=== PATIENT | female | born 1935 | race Caucasian/White ===

== ENCOUNTER 2017-12-15 20:43 | Inpatient (IN) ==
[2017-12-15] MEDS ORDERED: *HR* FentaNYL (PF) 100 MCG/2 ML VIAL IVP ONE (20:59)
--- NOTE | 2017-12-15 21:00 | Emergency Department Note ---
Disposition Clinical Impression: Hip fracture Qualifiers: Encounter type: initial encounter Fracture type: closed Laterality: right Qualified Code(s): S72.001A - Fracture of unspecified part of neck of right femur, initial encounter for closed fracture Disposition: Admitted As Inpatient Condition: Good General Adult HPI - General Stated complaint: fall poss broken right hip Source: patient, EMS Mode of arrival: EMS Limitations: no limitations Nursing Notes Reviewed: Yes Vital Signs Reviewed: Yes - History of Present Illness HPI Narrative: Patient here for evaluation after fall. Patient states she was getting up on a chair when she fell backwards and hit her head on the table. Patient landed on her right hip. Patient complaining of right hip pain since then. Patient also complains of pain in her right foot. The patient states that she has not had any other injuries. Patient takes aspirin daily but no other blood thinners. Patient does not have any and there injury is noted at this time. Patient did not lose consciousness. - Related Data Home Medications Medication Instructions Recorded Confirmed Amlodipine Besylate 10 mg PO DAILY 12/15/17 12/15/17 Aspirin [Lo-Dose Aspirin EC] 81 mg PO DAILY 12/15/17 12/15/17 Ergocalciferol (VITAMIN D2) 50,000 unit PO QWEEK 12/15/17 12/15/17 [Vitamin D2] Escitalopram [Lexapro] 10 mg PO DAILY 12/15/17 12/15/17 Esomeprazole Magnesium [Nexium] 40 mg PO DAILY 12/15/17 12/15/17 Fenofibrate Nanocrystallized 160 mg PO DAILY 12/15/17 12/15/17 [Triglide] Metoprolol Succinate [Toprol Xl] 50 mg PO BID 12/15/17 12/15/17 Valsartan 160 mg PO BID 12/15/17 12/15/17 Allergies Allergy/AdvReac Type Severity Reaction Status Date / Time acetaminophen [From Percocet] Allergy Hallucinati Verified 12/15/17 21:04 ng Oxycodone [From Percocet] Allergy Hallucinati Verified 12/15/17 21:04 ng Review of Systems: CONSTITUTIONAL: No weight loss, fever, chills, weakness or fatigue. HEENT: Eyes: No visual changes. Ears, Nose, Throat: No hearing loss, difficulty talking or unable to swallow. SKIN: No rash or itching. CARDIOVASCULAR: No chest pain, chest pressure or chest discomfort. No palpitations or edema. RESPIRATORY: No shortness of breath, cough or sputum. GASTROINTESTINAL: No anorexia, nausea, vomiting or diarrhea. No abdominal pain or blood. GENITOURINARY: No burning on urination or hematuria. NEUROLOGICAL: No headache, dizziness, syncope, paralysis, ataxia, numbness or tingling in the extremities. No change in bowel or bladder control. MUSCULOSKELETAL: Right hip pain Physical Exam General: Well appearing, nontoxic, no acute distress Head: Normocephalic Atraumatic Eyes: PERRL, EOMI ENT: Airway patent, no stridor Neck: supple, no meningismus Chest: Lungs clear to auscultation bilateral; no tenderness Cardiac: Regular rate and rhythm, no murmurs, rubs or gallops Abdomen: soft, nontender, nondistended; no guarding, rebound, or tenderness to percussion Musculoskeletal: Tenderness to the right hip as well as the right ankle. Concern for external rotation of the hip. Sensation intact throughout the lower leg. Distal pulses +2 and present in the lower extremities. No cervical thoracic or lumbar spine tenderness Skin: No rash, normal skin tone Neuro: Alert and Oriented to person, place, and time; No focal deficit, CN 2-12 symmetric and intact Course - Consultations Consultation #1: Intertrochanteric fracture. Dr. Flynn. Admission to the hospitalist. Consult entered. Consultation #2: Discussed with hospitalist patient accepted for admission. Vital Signs Temperature 98.1 F 12/15/17 20:49 Pulse Rate 51 12/15/17 20:49 Respiratory Rate 16 12/15/17 20:49 Blood Pressure 172/90 12/15/17 20:49 O2 Sat by Pulse Oximetry 94 12/15/17 20:49 Temperature 98.1 F 12/15/17 20:49 Pulse Rate 67 12/15/17 23:19 Respiratory Rate 18 12/15/17 23:19 Blood Pressure 134/123 12/15/17 23:19 O2 Sat by Pulse Oximetry 99 12/15/17 23:19 Oxygen Delivery Oxygen Delivery Room Air Medical Decision Making - Medical Records Medical records reviewed: Yes I reviewed the patient's medical records. - Lab Data Lab results reviewed: Yes I reviewed the patient's lab results. Result diagrams: 12/15/17 22:12/15/17 22:05 Lab Results 12/15/17 12/15/17 12/15/17 Range/Units 22:05 22:05 22:05 WBC 14.3 H (4.3-11.1) K/mcL RBC 4.08 (3.82-4.97) M/mcL Hgb 12.0 (11.5-15.4) g/dL Hct 35.0 L (35.3-44.9) % MCV 85.8 (83.0-100.0) fL MCH 29.4 (28.0-33.3) pg MCHC 34.3 (31.6-35.5) g/dL RDW 12.7 (11.5-14.5) % Plt Count 193 (140-400) K/mcL MPV 9.0 L (9.4-12.4) fL Immature Gran % 0.5 (0-4) % Seg Neutrophils % 51.9 % Lymphocytes % 38.3 % Monocytes % 5.4 % Eosinophils % 3.4 % Basophils % 0.5 % Neutrophils # 7.4 (1.6-8.9) K/mcL Lymphocytes # 5.5 H (0.6-4.6) K/mcL Monocytes # 0.8 (0.0-1.3) K/mcL Eosinophils # 0.5 (0.0-0.6) K/mcL Basophils # 0.1 (0.0-0.2) K/mcL PT 11.0 (9.4-12.1) Seconds INR 1.0 Sodium 140 (136-145) mEq/L Potassium 3.8 (3.5-5.1) mEq/L Chloride 105 (98-107) mEq/L Carbon Dioxide 26 (23-29) mEq/L BUN 40 H (8-23) mg/dL Creatinine 1.25 H (0.60-1.20) mg/dL Est GFR ( Amer) 50 L (> 60) Est GFR (Non-Af Amer) 41 L (> 60) BUN/Creatinine Ratio 32 H (6-26) Glucose 127 H (70-105) mg/dL Calculated Osmolality 301 H (280-300) Calcium 9.5 (8.6-10.3) mg/dL Urine Color (Yellow) Urine Clarity (Clear) Urine pH (5.0-8.0) pH Units Ur Specific [place] (1.010-1.025) Urine Protein (Neg-Trace) mg/dL Urine Glucose (UA) (Normal) mg/dL Urine Ketones (Negative) mg/dL Urine Blood (Negative) Urine Nitrite (Negative) Urine Bilirubin (Negative) Urine Urobilinogen (Normal) mg/dL Ur Leukocyte Esterase (Negative) Ur Culture Indicated? (NO) 12/15/17 Range/Units 22:34 WBC (4.3-11.1) K/mcL RBC (3.82-4.97) M/mcL Hgb (11.5-15.4) g/dL Hct (35.3-44.9) % MCV (83.0-100.0) fL MCH (28.0-33.3) pg MCHC (31.6-35.5) g/dL RDW (11.5-14.5) % Plt Count (140-400) K/mcL MPV (9.4-12.4) fL Immature Gran % (0-4) % Seg Neutrophils % % Lymphocytes % % Monocytes % % Eosinophils % % Basophils % % Neutrophils # (1.6-8.9) K/mcL Lymphocytes # (0.6-4.6) K/mcL Monocytes # (0.0-1.3) K/mcL Eosinophils # (0.0-0.6) K/mcL Basophils # (0.0-0.2) K/mcL PT (9.4-12.1) Seconds INR Sodium (136-145) mEq/L Potassium (3.5-5.1) mEq/L Chloride (98-107) mEq/L Carbon Dioxide (23-29) mEq/L BUN (8-23) mg/dL Creatinine (0.60-1.20) mg/dL Est GFR ( Amer) (> 60) Est GFR (Non-Af Amer) (> 60) BUN/Creatinine Ratio (6-26) Glucose (70-105) mg/dL Calculated Osmolality (280-300) Calcium (8.6-10.3) mg/dL Urine Color Yellow (Yellow) Urine Clarity Clear (Clear) Urine pH 6.5 (5.0-8.0) pH Units Ur Specific [place] 1.020 (1.010-1.025) Urine Protein Negative (Neg-Trace) mg/dL Urine Glucose (UA) Normal (Normal) mg/dL Urine Ketones Negative (Negative) mg/dL Urine Blood Negative (Negative) Urine Nitrite Negative (Negative) Urine Bilirubin Negative (Negative) Urine Urobilinogen Normal (Normal) mg/dL Ur Leukocyte Esterase Negative (Negative) Ur Culture Indicated? NO (NO) - Radiology Data Radiology results reviewed: Yes I reviewed the patient's radiology results. - EKG Data EKG #1 EKG attestation: Yes I reviewed and interpreted this EKG. EKG results narrative: EKG shows sinus bradycardia with ventricular rate of 52. [place] all 214. QRS 101. QTC 454. Patient has no significant elevations or depressions but she does have T-wave inversions throughout the anterior leads.
[2017-12-15 22:17] LABS: Basophils # 0.1 K/mcL (0.0-0.2); Basophils % 0.5 %; Eosinophils # 0.5 K/mcL (0.0-0.6); Eosinophils % 3.4 %; Immature Granulocytes % 0.5 % (0-4); Lymphocytes # 5.5 K/mcL (0.6-4.6); Lymphocytes % 38.3 %; Mean Corpuscular HGB Conc 34.3 g/dL (31.6-35.5); Mean Corpuscular Hemoglobin 29.4 pg (28.0-33.3); Mean Corpuscular Volume 85.8 fL (83.0-100.0); Monocytes # 0.8 K/mcL (0.0-1.3); Monocytes % 5.4 %; Neutrophils # 7.4 K/mcL (1.6-8.9); Platelet Count 193 K/mcL (140-400); Red Blood Count 4.08 M/mcL (3.82-4.97); Red Cell Distribution Width 12.7 % (11.5-14.5); Segmented Neutrophils % 51.9 %
[2017-12-15 22:37] LABS: Calcium 9.5 mg/dL (8.6-10.3); Potassium 3.8 mEq/L (3.5-5.1)
--- NOTE | 2017-12-15 22:42 | Emergency Department Note ---
START Narrative - START START: I examined this patient and my medical decision-making was reviewed with the Resident Physician. I agree with the documented findings, disposition and treatment plan as described except to the extent set forth below. 82-year-old female presents emergency room for a fall. Patient fell at home. Injured injuring her right hip. Patient sustained a right hip fracture. Consult with Dr. Flynn With orthopedics. We will admit to the hospitalist. We also did a CT of the head and neck as she did hit her head during the fall. Those were negative. We will do a preop workup in the ER.
[2017-12-15 22:43] LABS: Bilirubin,Urine Negative (Negative); Blood,Urine Negative (Negative); Clarity,Urine Clear (Clear); Color,Urine Yellow (Yellow); Glucose,Urine (UA) Normal (Normal); Ketones,Urine Negative (Negative); Leukocyte Esterase,Urine Negative (Negative); Nitrite,Urine Negative (Negative); PH,Urine 6.5 pH Units (5.0-8.0); Protein,Urine Negative (Neg-Trace); Urobilinogen,Urine Normal (Normal)
[2017-12-15] MEDS ORDERED: Naloxone 0.4 MG/ML INJ IVP PRN (23:33)
[2017-12-15] MEDS ORDERED: Ondansetron 4 MG/2 ML VIAL IVP PRN (23:33)
[2017-12-15] MEDS ORDERED: diazePAM 2 MG TABLET PO ONE (23:40)
[2017-12-15] MEDS ORDERED: *HR* HYDROcodone/Acet 10/325 mg TABLET PO ONE (23:40)
[2017-12-15] MEDS: 0.9 % Sodium Chloride 1,000 ML IVC SCH (23:51)
--- NOTE | 2017-12-16 01:12 | Internal Med History&Physical ---
Date of Encounter: 12/16/17 Time of Encounter: 12:45 Internal Medicine - H&P: HPI Chief complaint: s/p fall Admitted From: Home Plans for Post Hospital Care: Transfer Assisted Facility History of present illness: Ms. Aguilar is a 82 year old female with PMH of HTN, IBS, malignancy, GERD, HLD, CKD who presented to the ER s/p mechanical fall sustaining an acute right hip fracture. ER consulted orthopedic surgery. Pt reports of having extensive hallucinations to narcotic therapy. she received fentanyl, valium, and norco in the ER, which provided her with adequate relief. She is currently resting in bed with family present at bedside, and denies any pain at rest and states she has severe right lower extremity pain with minimal movement. Pt denies any headache, dizziness, lightheadedness, chest pain, sob, n/v, fever, or chills at this time. Past Med Surg Social Fam HX - Past Medical History Medical history: cancer, GERD, hypertension, renal disease Psychiatric history: no psych history - Past Surgical History Surgical History: cholecystectomy, hysterectomy - Social History Smoking Status: Never smoker Alcohol use: none Drug use: none - Family History Mother Living Status: Age at : 68 Cause of : lung ca Hx Family Cancer: Yes (lung ca) Hx Family Endocrine Disorder: Yes (dm) Father Living Status: Age at : 54 Cause of : mi Hx Family Cardiac Disorders: Yes Internal Medicine - H&P: Meds Amlodipine Besylate 10 mg PO DAILY 12/15/17 [History] Aspirin [Lo-Dose Aspirin EC] 81 mg PO DAILY 12/15/17 [History] Ergocalciferol (VITAMIN D2) [Vitamin D2] 50,000 unit PO QWEEK 12/15/17 [History] Escitalopram [Lexapro] 10 mg PO DAILY 12/15/17 [History] Esomeprazole Magnesium [Nexium] 40 mg PO DAILY 12/15/17 [History] Fenofibrate Nanocrystallized [Triglide] 160 mg PO DAILY 12/15/17 [History] Metoprolol Succinate [Toprol Xl] 50 mg PO BID 12/15/17 [History] Valsartan 160 mg PO BID 12/15/17 [History] Loperamide [Imodium] 2 mg PO DAILY 12/16/17 [History] 3 Allergy/AdvReac Type Severity Reaction Status Date / Time acetaminophen [From Percocet] Allergy Hallucinati Verified 12/15/17 21:04 ng Oxycodone [From Percocet] Allergy Hallucinati Verified 12/15/17 21:04 ng All Systems PM: A 10-system review of systems was performed and is negative for pertinent findings except as documented above in the HPI. - Constitutional Constitutional: as per HPI - Constitutional Vitals: Temp Pulse Resp BP Pulse Ox 97.4 F L 58 14 127/66 94 12/16/17 00:50 12/16/17 00:50 12/16/17 00:50 12/16/17 00:50 12/16/17 00:50 General appearance: Present: cooperative, A&O X 3, pleasant, no acute distress, answers questions appropriately - Head Head exam: Present: atraumatic, normocephalic - Eye Eye exam: Present: conjuntiva pink, sclera anicteric - Respiratory Respiratory exam: Present: CTAB. Absent: respiratory distress, wheezes - Cardiovascular Cardiovascular exam: Present: RRR, +S1, +S2. Absent: diastolic murmur, gallop, rubs, systolic murmur - GI/Abdominal GI/Abdominal exam: Present: normal bowel sounds, soft, no peritoneal signs. Absent: distended, tenderness - Extremities Exam Extremities exam: Present: tenderness (right hip tenderness), warm, radial pulses palpable and symmetrical (trace right pedal edema ). Absent: calf tenderness - Neurological Exam Neurological exam: Present: oriented X3 - Psychiatric Psychiatric exam: Present: normal affect, normal mood Internal Med - H&P Results - Labs CBC & Chem 7: 12/15/17 22:05 12/15/17 22:05 - Assessment and plan (1) Hip fracture Current Visit: Yes Status: Acute Assessment and plan: Pelvis XRay reported acute right hip fracture Orthopedic surgery consulted by ER physician supportive care NPO after midnight Qualifiers: Encounter type: initial encounter Fracture type: closed Laterality: right Qualified Code(s): S72.001A - Fracture of unspecified part of neck of right femur, initial encounter for closed fracture (2) [id number]-he-[id number] kidney injury Current Visit: Yes Status: Acute Assessment and plan: mild elevation in Creatinine noted compared to previous labs hold ARB at this time continue IV fluids hold NSAIDS avoid any nephrotoxic agents closely monitor renal function Qualifiers: Acute renal failure type: unspecified Chronic kidney disease stage: unspecified stage Qualified Code(s): N17.9 - Acute kidney failure, unspecified ; N18.9 - Chronic kidney disease, unspecified (3) HTN (hypertension) Current Visit: Yes Status: Chronic Assessment and plan: BP within acceptable range continue home meds hold home dose of Valsartan given DIDIER will closely monitor BP Qualifiers: Hypertension type: essential hypertension Qualified Code(s): I10 - Essential (primary) hypertension (4) HLD (hyperlipidemia) Current Visit: Yes Status: Chronic Assessment and plan: continue home meds Qualifiers: Hyperlipidemia type: unspecified Qualified Code(s): E78.5 - Hyperlipidemia , unspecified (5) DVT prophylaxis Current Visit: Yes Status: Acute Assessment and plan: start Heparin SQ after orthopedic evaluation in am - Time Spent With Patient Total time spent is greater than 50% in coordination of care (as documented) at patient's floor/unit and/or counseling patient:
[2017-12-16 01:45] LABS: Basophils # 0.1 K/mcL (0.0-0.2); Basophils % 0.5 %; Eosinophils # 0.2 K/mcL (0.0-0.6); Eosinophils % 1.1 %; Hematocrit 34.1 % (35.3-44.9); Hemoglobin 11.2 g/dL (11.5-15.4); Immature Granulocytes % 0.4 % (0-4); Lymphocytes # 4.1 K/mcL (0.6-4.6); Lymphocytes % 28.6 %; Mean Corpuscular HGB Conc 32.8 g/dL (31.6-35.5); Mean Corpuscular Hemoglobin 28.3 pg (28.0-33.3); Mean Corpuscular Volume 86.1 fL (83.0-100.0); Mean Platelet Volume 9.4 fL (9.4-12.4); Monocytes # 0.9 K/mcL (0.0-1.3); Monocytes % 6.1 %; Platelet Count 198 K/mcL (140-400); Red Blood Count 3.96 M/mcL (3.82-4.97); Red Cell Distribution Width 12.7 % (11.5-14.5); Segmented Neutrophils % 63.3 %
[2017-12-16 02:03] LABS: Magnesium 1.9 mg/dL (1.6-2.6); Phosphorous 2.7 mg/dL (2.7-4.5); Potassium 3.8 mEq/L (3.5-5.1)
--- NOTE | 2017-12-16 06:54 | Orthopedic Consult Note ---
Date of Encounter: 12/16/17 Time of Encounter: 06:52 History of Present Illness HPI: Ms. Aguilar is a 82 year old female Status post fall yesterday after climbing on a chair to change screen. Patient fell and injured her right hip. Patient denies any history of head trauma. Patient does have a significant history with reaction to conscious sedation following kyphoplasty and EGD in the past. Physical exam Patient alert and oriented 3 Right lower extremity Shortened externally rotated Neurovascular intact Decreased range of motion secondary to pain X-rays show displaced subtrochanteric intertrochanteric right femur fracture. Recommendation patient to be evaluated by anesthesia morning plan for open reduction intramedullary nail fixation. We reviewed the risks and benefits as well as recovery. All questions were answered. The patient agreed to this treatment plan and appeared to understand the plan is reviewed. Past Med Surg Social Fam HX - Past Medical History Medical history: cancer, GERD, hypertension, renal disease Psychiatric history: no psych history - Past Surgical History Surgical History: cholecystectomy, hysterectomy - Social History Smoking Status: Never smoker Alcohol use: none Drug use: none - Family History Mother Living Status: Age at : 68 Cause of : lung ca Hx Family Cancer: Yes (lung ca) Hx Family Endocrine Disorder: Yes (dm) Father Living Status: Age at : 54 Cause of : mi Hx Family Cardiac Disorders: Yes Medications and Allergies Amlodipine Besylate 10 mg PO DAILY 12/15/17 [History] Aspirin [Lo-Dose Aspirin EC] 81 mg PO DAILY 12/15/17 [History] Ergocalciferol (VITAMIN D2) [Vitamin D2] 50,000 unit PO QWEEK 12/15/17 [History] Escitalopram [Lexapro] 10 mg PO DAILY 12/15/17 [History] Esomeprazole Magnesium [Nexium] 40 mg PO DAILY 12/15/17 [History] Fenofibrate Nanocrystallized [Triglide] 160 mg PO DAILY 12/15/17 [History] Metoprolol Succinate [Toprol Xl] 50 mg PO BID 12/15/17 [History] Valsartan 160 mg PO BID 12/15/17 [History] Loperamide [Imodium] 2 mg PO DAILY 12/16/17 [History] 3 Allergy/AdvReac Type Severity Reaction Status Date / Time acetaminophen [From Percocet] Allergy Hallucinati Verified 12/15/17 21:04 ng Oxycodone [From Percocet] Allergy Hallucinati Verified 12/15/17 21:04 ng All Systems Reviewed: The remainder of the systems were reviewed and are negative Physical Exam - Constitutional Vitals: Temp Pulse Resp BP Pulse Ox 98.1 F 55 20 110/64 98 12/16/17 03:20 12/16/17 03:20 12/16/17 03:20 12/16/17 03:20 12/16/17 03:20 Results - Labs Result Diagrams: 12/16/17 01:22 12/16/17 01:22 Labs: Abnormal lab results WBC 14.2 K/mcL (4.3-11.1) H 12/16/17 01:22 Hgb 11.2 g/dL (11.5-15.4) L 12/16/17 01:22 Hct 34.1 % (35.3-44.9) L 12/16/17 01:22 Neutrophils # 9.0 K/mcL (1.6-8.9) H 12/16/17 01:22 Carbon Dioxide 22 mEq/L (23-29) L 12/16/17 01:22 BUN 40 mg/dL (8-23) H 12/16/17 01:22 Est GFR ( Amer) 56 (> 60) L 12/16/17 01:22 Est GFR (Non-Af Amer) 46 (> 60) L 12/16/17 01:22 BUN/Creatinine Ratio 36 (6-26) H 12/16/17 01:22 Glucose 136 mg/dL (70-105) H 12/16/17 01:22 Calculated Osmolality 302 (280-300) H 12/16/17 01:22 H & H 12/16/17 Range/Units 01:22 Hgb 11.2 L (11.5-15.4) g/dL Hct 34.1 L (35.3-44.9) % All other labs normal. Consult Discharge Plan - Plan
[2017-12-16] MEDS ORDERED: traMADol 50 MG TABLET PO ONE (08:30)
[2017-12-16] MEDS ORDERED: Valsartan 160 MG TABLET PO SCH (09:00)
[2017-12-16] MEDS ORDERED: Fenofibrate 54 MG TABLET PO SCH (09:00)
[2017-12-16] MEDS ORDERED: Metoprolol XL (24 HR) Succ 50 MG TAB.ER.24H PO SCH (09:00)
[2017-12-16] MEDS ORDERED: Loperamide 1 MG/5 ML UDC PO SCH (09:00)
[2017-12-16] MEDS ORDERED: amLODIPine 5 MG TABLET PO SCH (09:00)
[2017-12-16] MEDS ORDERED: Aspirin Enteric Coated 81 MG Tablet PO SCH (09:00)
--- NOTE | 2017-12-16 11:28 | Internal Med Progress Note ---
Date of Encounter: 12/16/17 Time of Encounter: 11:23 - Assessment and plan (1) Hip fracture Current Visit: Yes Status: Acute Assessment and plan: 82-year-old female had accidental fall which resulted in left hip fracture. Orthopedics planned surgery today. - Pain control, DVT prophylaxis. - Host operative rehabilitation discussed with patient. Qualifiers: Encounter type: initial encounter Fracture type: closed Laterality: right Qualified Code(s): S72.001A - Fracture of unspecified part of neck of right femur, initial encounter for closed fracture (2) HTN (hypertension) Current Visit: Yes Status: Chronic Assessment and plan: BP well controlled, resume Valsartan due to resolved DIDIER. Continue other home medications. Qualifiers: Hypertension type: essential hypertension Qualified Code(s): I10 - Essential (primary) hypertension (3) HLD (hyperlipidemia) Current Visit: Yes Status: Chronic Assessment and plan: continue home meds Qualifiers: Hyperlipidemia type: unspecified Qualified Code(s): E78.5 - Hyperlipidemia , unspecified (4) [id number] kidney injury Current Visit: Yes Status: Acute Assessment and plan: DIDIER resolved, resume valsartan. Qualifiers: Acute renal failure type: unspecified Chronic kidney disease stage: unspecified stage Qualified Code(s): N17.9 - Acute kidney failure, unspecified ; N18.9 - Chronic kidney disease, unspecified (5) DVT prophylaxis Current Visit: Yes Status: Acute Assessment and plan: start Heparin SQ. - Time Spent With Patient Total time spent is greater than 50% in coordination of care (as documented) at patient's floor/unit and/or counseling patient: - Subjective Interval history: Patient seen and examined in the room was family. She has no complaints at this time, awaiting the upcoming surgery. She denies fever, chills, or night sweats. She has no chest pain, shortness of breath, or palpitation. - Constitutional Vitals: Temp Pulse Resp BP Pulse Ox 98.1 F 58 18 112/68 99 12/16/17 06:44 12/16/17 06:44 12/16/17 06:44 12/16/17 06:44 12/16/17 07:52 General appearance: Present: cooperative, A&O X 3, pleasant, no acute distress, answers questions appropriately Exam: PHYSICAL EXAMINATION: GENERAL APPEARANCE: The patient is alert, oriented and in no acute distress. HEENT: Head is normocephalic. The sinuses are nontender. Pupils are equal and reactive. The nares are patent. Oropharynx clear without lesions. NECK: Supple without lymphadenopathy. HEART: Regular rate and rhythm. LUNGS: No crackles or wheezes are heard. ABDOMEN: Soft, nontender, nondistended with good bowel sounds heard. Inguinal area is normal. EXTREMITIES: intact neurovascular function of right leg.. NEUROLOGICAL: Gross nonfocal. SKIN: Warm and dry without any rash. Internal Medicine: Result - Labs CBC & Chem 7: 12/16/17 01:22 12/16/17 01:22 Labs: Short CBC 12/16/17 Range/Units 01:22 WBC 14.2 H (4.3-11.1) K/mcL Hgb 11.2 L (11.5-15.4) g/dL Hct 34.1 L (35.3-44.9) % Plt Count 198 (140-400) K/mcL Neutrophils # 9.0 H (1.6-8.9) K/mcL BMP 12/16/17 01:22 Sodium 140 Potassium 3.8 Chloride 107 Carbon Dioxide 22 L BUN 40 H Creatinine 1.12 Glucose 136 H Calcium 9.0 - ABG Interpretation ABG results: PT/INR, D-dimer PT 11.0 Seconds (9.4-12.1) 12/15/17 22:05 Consult Discharge Plan - Plan Referrals: Ed Ramirez MD [Primary Care Provider] -
--- NOTE | 2017-12-16 11:35 | Anesthesia Evaluation PreOp ---
Date of Encounter: 12/16/17 Time of Encounter: 11:33 - Past History Planned Operation: R hip IM nail Cardiac History: HTN, Hyperlipidemia Pulmonary History: ADILENE Dx (on cpap) HUMAN PROJECTILE History: Denies Any Significant HX Other Medical History: Renal (CKD) Anesthesia History: No Prior Anesthetic Complications, Past Anesthesia (brain sx ,cholecystectomy, hysterectomy) Alcohol Use: none Drug use: none Medications and Allergies Amlodipine Besylate 10 mg PO DAILY 12/15/17 [History] Aspirin [Lo-Dose Aspirin EC] 81 mg PO DAILY 12/15/17 [History] Ergocalciferol (VITAMIN D2) [Vitamin D2] 50,000 unit PO QWEEK 12/15/17 [History] Escitalopram [Lexapro] 10 mg PO DAILY 12/15/17 [History] Esomeprazole Magnesium [Nexium] 40 mg PO DAILY 12/15/17 [History] Fenofibrate Nanocrystallized [Triglide] 160 mg PO DAILY 12/15/17 [History] Metoprolol Succinate [Toprol Xl] 50 mg PO BID 12/15/17 [History] Valsartan 160 mg PO BID 12/15/17 [History] Loperamide [Imodium] 2 mg PO DAILY 12/16/17 [History] 3 Allergy/AdvReac Type Severity Reaction Status Date / Time acetaminophen [From Percocet] Allergy Hallucinati Verified 12/15/17 21:04 ng Oxycodone [From Percocet] Allergy Hallucinati Verified 12/15/17 21:04 ng - Meds/Allergy Pre-op Review Medications Reviewed: Yes Allergies Reviewed: Yes Beta Blockers on Current Med List: Yes If Beta Blockers taken, Date/Time (Last Dose taken): 740am 12/16/17 Anesthesia Results - Labs 12/16/17 01:22 12/16/17 01:22 - Imaging EKG: report reviewed (sinus destin with first degree AV block) Anesthesia Exam Vital Signs/O2 Sat, Most Current Temp Pulse Resp BP Pulse Ox 98.1 F 58 18 112/68 99 12/16/17 06:44 12/16/17 06:44 12/16/17 06:44 12/16/17 06:44 12/16/17 07:52 Height: 1.61m Weight: 74kg NPO (# of Hours): >8 Pain Scale Used: Numeric (1 - 10) - HEENT Pupil (Motor): Pupils equal, EOMI - HUMAN PROJECTILE LOC: Oriented HUMAN PROJECTILE Motor: Normal RUE, Normal LUE, Normal RLE, Normal LLE, Normal Face HUMAN PROJECTILE Sensory: Normal: RUE, LUE, LLE, Face, Deficit: RLE (hip fracture) - Cardiac Rhythm: Regular - Pulmonary Breath Sounds: bilateral Clear Anesthesia Assess/Plan ASA Score: 3 Modified [place] Scale for Level of Consciousness: Cooperative, oriented, and tranquil Anesthetic Plan: General Monitoring Plan: Standard Monitors Recovery Plan: PACU
[2017-12-16] MEDS ORDERED: Acetaminophen IV 1,000 MG/100 ML INFUS..BTL ONE (12:06)
[2017-12-16] MEDS ORDERED: *HR* FentaNYL (PF) 100 MCG/2 ML VIAL ONE (12:13)
[2017-12-16] MEDS ORDERED: *HR* Propofol 200 MG/20 ML VIAL IVP ONE (12:13)
[2017-12-16] MEDS ORDERED: Lidocaine -MPF 2% 2 ML VIAL ONE (12:15)
[2017-12-16] MEDS ORDERED: *HR* Succinylcholine 200 MG/10 ML VIAL IVP ONE (12:15)
[2017-12-16] MEDS ORDERED: CeFAZolin Syr 2,000MG/20 ML 2,000 MG/20 ML SYRINGE IVPB ONE (12:17)
[2017-12-16] MEDS ORDERED: EPHEDrine 50 MG/ML VIAL ONE (12:53)
[2017-12-16] MEDS ORDERED: Dexamethasone 4 MG/ML VIAL ONE (13:04)
[2017-12-16] MEDS ORDERED: Ondansetron 4 MG/2 ML VIAL ONE (13:04)
[2017-12-16] MEDS ORDERED: MORPHINE SUL Oral CONC 10 MG/0.5 ML ORAL.SYG SL PRN (13:45)
--- NOTE | 2017-12-16 13:56 | Orthopedic Operative Note ---
Date of procedure: 12/16/17 Pre-op diagnosis: Displaced right comminuted subtrochanteric/intertrochanteric hip fracture. Post-op diagnosis: same Procedure: Procedure: Right hip open reduction intramedullary nail fixation Estimated blood loss: 200 cc Hardware: Metal: 10 x 130 Synthes TFN, 90 helical blade, Procedural Notes: Patient with very tight canal rotational stability was obtained by the security of the nail in the distal femur. Operative procedure: The patient was brought to the operating room and placed on the operating room table. After general anesthesia was administered the well leg was place in the well leg kahn and the operative leg was placed in the fracture leg kahn. All pressure points were padded appropriately. The operative extremity was prepped and draped in the sterile surgical fashion patient received IV antibiotic prior to skin incision. A standard direct lateral approach was made over the entry point of the greater trochanter, the incision was made through the skin and subcutaneous tissue hemostasis was obtained with Bovie cautery. Using careful sharp dissection the fascia was identified and incised, flouroscopic assistance was used to identify the entry point. The guidepin was placed at the entry point using fluroscopic assistance, it was over reamed with the proximal reamer. The nail was placed through the entry hole, across the fracture site into the distal fragment the position was confirmed with fluroscopy. Patient had significant comminution proximally. Overall reduction and alignment were acceptable. A guide pin was placed through the proximal locking guide from the lateral femur through the nail across the fracture site into the femoral head, it was over reamed with the reamer. The 90 mm helical blade was placed over the guide pin through the nail into the femoral head, locked in place with the proximal locking bolt. Distal fixation was obtained by the fit of the femoral nail within the femoral shaft. The position of hardware and fracture reduction found to be acceptable with fluroscopic assistance. The wound was irrigated. Fascia was closed with a running #2 PDS suture. The deep tissue was irrigated and closed deep with #1 PDS suture superficially with 0 PDS suture and skin was closed with skin dia and zip tie. The patient was placed in a sterile dressing The patient was extubated and transferred to the recovery room in stable condition. Anesthesia: GETA Surgeon: Westley Flynn Was there an optical assistant present: No Estimated blood loss (cc): 200 Condition: stable Disposition: PACU
[2017-12-16 14:04] LABS: Hematocrit 31.5 % (35.3-44.9); Hemoglobin 10.6 g/dL (11.5-15.4)
[2017-12-16] MEDS ORDERED: *HR* HYDROcodone/Acet 10/325 mg TABLET PO PRN ×2 (14:13→21:37)
[2017-12-16] MEDS ORDERED: 0.9 % Sodium Chloride 1,000 ML IVC SCH (14:13)
[2017-12-16] MEDS ORDERED: Naloxone 0.4 MG/ML INJ IVP PRN (14:13)
[2017-12-16] MEDS ORDERED: Ondansetron 4 MG/2 ML VIAL IVP PRN (14:13)
--- NOTE | 2017-12-16 14:17 | Anesthesia Evaluation Post Op ---
Date of Encounter: 12/16/17 Time of Encounter: 14:15 - Vital Signs Vital Signs: Vital Signs/O2 Sat, Most Current Temp Pulse Resp BP Pulse Ox 98.2 F 62 16 137/68 92 12/16/17 13:34 12/16/17 13:54 12/16/17 13:54 12/16/17 13:54 12/16/17 13:54 - Lungs Lungs: Clear Ascult./Percussion - Airway Airway: Non-obstructed - Cardiovascular Regular Rate - Mental Status Mental Status: Alert & Oriented, Answers Appropriately - Pain Pain Scale: 0 Pain Scale used: Numeric (1 - 10) - Nausea Vomiting Nausea Vomiting: Not Present - Hydration Hydration: Ice chips, Goldstein catheter - Discharge PostOp Status: Transfer Patient to floor Attestation: I have assessed this patient and find they meet discharge criteria.
--- NOTE | 2017-12-16 17:21 | Event Note ---
Date of Encounter: 12/16/17 Time of Encounter: 17:19 Patient is to get a bone stimulator for the operative hip. Bracing from [facility] is working on getting this taken care of for her. This will be provided for patient to use starting on Tuesday 12/19. It is to be applied 3 hours daily.
[2017-12-16] MEDS: *HR* Heparin 5,000 UNIT/ML VIAL SQ SCH (17:25)
[2017-12-16] MEDS: CeFAZolin Pre 2,000 MG/100 ML 2,000 MG/100 ML BAG IVPB SCH (17:25)
[2017-12-16] MEDS ORDERED: *HR* Heparin 5,000 UNIT/ML VIAL SQ SCH (18:00)
[2017-12-16] MEDS: Metoprolol XL (24 HR) Succ 50 MG TAB.ER.24H PO SCH (21:34)
[2017-12-16] MEDS: Valsartan 160 MG TABLET PO SCH (21:34)
[2017-12-16] MEDS ORDERED: traMADol 50 MG TABLET PO PRN ×2 (21:36→21:45)
[2017-12-16] MEDS ORDERED: Acetaminophen IV 1,000 MG/100 ML INFUS..BTL IVPB PRN (21:37)
[2017-12-16] MEDS: *HR* HYDROcodone/Acet 5/325 mg TABLET PO PRN (21:55)
--- NOTE | 2017-12-16 23:27 | Electrocardiograph Report ---
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
[2017-12-17] MEDS: CeFAZolin Pre 2,000 MG/100 ML 2,000 MG/100 ML BAG IVPB SCH (00:37)
[2017-12-17] MEDS: *HR* Heparin 5,000 UNIT/ML VIAL SQ SCH ×2 (05:27→18:34)
--- NOTE | 2017-12-17 09:47 | Internal Med Progress Note ---
Date of Encounter: 12/17/17 Time of Encounter: 09:30 - Assessment and plan (1) Hip fracture Current Visit: Yes Status: Acute Assessment and plan: Postop day 1 Right hip open reduction intramedullary nail fixation Pain is adequately controlled Working with physical therapy Likely discharge Tuesday Qualifiers: Encounter type: initial encounter Fracture type: closed Laterality: right Qualified Code(s): S72.001A - Fracture of unspecified part of neck of right femur, initial encounter for closed fracture (2) HTN (hypertension) Current Visit: Yes Status: Chronic Assessment and plan: BP well controlled, resume Valsartan due to resolved DIDIER. Continue other home medications. Qualifiers: Hypertension type: essential hypertension Qualified Code(s): I10 - Essential (primary) hypertension (3) HLD (hyperlipidemia) Current Visit: Yes Status: Chronic Assessment and plan: continue home meds Qualifiers: Hyperlipidemia type: unspecified Qualified Code(s): E78.5 - Hyperlipidemia , unspecified (4) Jefqu-fa-uepglac kidney injury Current Visit: Yes Status: Acute Assessment and plan: DIDIER resolved, resume valsartan. Qualifiers: Acute renal failure type: unspecified Chronic kidney disease stage: unspecified stage Qualified Code(s): N17.9 - Acute kidney failure, unspecified ; N18.9 - Chronic kidney disease, unspecified (5) DVT prophylaxis Current Visit: Yes Status: Acute Assessment and plan: start Heparin SQ. - Time Spent With Patient Total time spent is greater than 50% in coordination of care (as documented) at patient's floor/unit and/or counseling patient: 25 - 35 minutes - Subjective Interval history: Work with physical therapy today morning. Sitting in a chair. Uses a walker with partial weightbearing allowed. - Constitutional Vitals: Temp Pulse Resp BP Pulse Ox 98.3 F 57 17 116/72 94 12/17/17 07:15 12/17/17 07:15 12/17/17 07:15 12/17/17 07:15 12/17/17 07:15 General appearance: Present: cooperative, A&O X 3, pleasant, no acute distress, answers questions appropriately Exam: Physical exam Gen: Comfortable, laying in bed, in no visible distress HEENT: Normocephalic, atraumatic. No conjunctival icterus. Moist oral mucosa. Neck: Supple Lungs: Clear to auscultation, no foreign sounds Heart: Normal S1-S2, no murmurs rubs or gallops Abdomen: Normoactive bowel sounds, no guarding rigidity or tenderness Extremities: No edema clubbing or cyanosis Neuro: Alert oriented 3, no focal deficits Skin: No skin lesions Internal Medicine: Result - Labs CBC & Chem 7: 12/16/17 13:51 12/16/17 01:22 Labs: Short CBC 12/16/17 Range/Units 13:51 Hgb 10.6 L (11.5-15.4) g/dL Hct 31.5 L (35.3-44.9) % - ABG Interpretation ABG results: PT/INR, D-dimer PT 11.0 Seconds (9.4-12.1) 12/15/17 22:05 - Impressions Impressions Fluoroscopy 12/16/17 12:52 IMPRESSION: Intraprocedural fluoroscopic spot images as above. See separate procedure report for more information. D/ / Trevor Ruiz MD / Trevor Ruiz MD Interpreting Provider: Trevor Ruiz MD Hip X-Ray 12/16/17 12:52 IMPRESSION: Intraprocedural fluoroscopic spot images as above. See separate procedure report for more information. D/ / Trevor Ruiz MD / Trevor Ruiz MD Interpreting Provider: Trevor Ruiz MD - VTE Documentation of Mechanical Device: Venous foot pump, device Consult Discharge Plan - Plan Referrals: Ed Ramirez MD [Primary Care Provider] -
[2017-12-17] MEDS: *HR* HYDROcodone/Acet 5/325 mg TABLET PO PRN ×2 (09:51→18:34)
[2017-12-17] MEDS: Aspirin Enteric Coated 81 MG Tablet PO SCH (09:52)
[2017-12-17] MEDS: Metoprolol XL (24 HR) Succ 50 MG TAB.ER.24H PO SCH ×2 (09:52→21:04)
[2017-12-17] MEDS: Loperamide 1 MG/5 ML UDC PO SCH (09:52)
[2017-12-17] MEDS: amLODIPine 5 MG TABLET PO SCH (09:52)
[2017-12-17] MEDS: Valsartan 160 MG TABLET PO SCH ×2 (09:53→21:04)
[2017-12-17] MEDS: Fenofibrate 54 MG TABLET PO SCH (09:54)
[2017-12-17 10:19] LABS: Basophils # 0.1 K/mcL (0.0-0.2); Basophils % 0.4 %; Eosinophils # 0.2 K/mcL (0.0-0.6); Eosinophils % 1.4 %; Hematocrit 29.7 % (35.3-44.9); Hemoglobin 9.8 g/dL (11.5-15.4); Immature Granulocytes % 0.3 % (0-4); Lymphocytes # 5.1 K/mcL (0.6-4.6); Lymphocytes % 42.7 %; Mean Corpuscular Hemoglobin 29.1 pg (28.0-33.3); Mean Corpuscular Volume 88.1 fL (83.0-100.0); Mean Platelet Volume 9.2 fL (9.4-12.4); Monocytes # 0.9 K/mcL (0.0-1.3); Monocytes % 7.7 %; Neutrophils # 5.6 K/mcL (1.6-8.9); Platelet Count 173 K/mcL (140-400); Red Blood Count 3.37 M/mcL (3.82-4.97); Red Cell Distribution Width 13.1 % (11.5-14.5); Segmented Neutrophils % 47.5 %
[2017-12-17 12:39] LABS: Albumin 3.7 g/dL (3.5-5.7); Albumin/Globulin Ratio 1.9 (1.1-2.2); Bilirubin,Total 0.4 mg/dL (0.3-1.0); Calcium 8.7 mg/dL (8.6-10.3); Globulin 1.9 g/dL (2.4-3.5); Potassium 3.7 mEq/L (3.5-5.1); Total Protein 5.6 g/dL (6.4-8.9)
[2017-12-18] MEDS: *HR* HYDROcodone/Acet 5/325 mg TABLET PO PRN ×2 (04:04→19:44)
[2017-12-18] MEDS: *HR* Heparin 5,000 UNIT/ML VIAL SQ SCH ×2 (06:18→17:26)
[2017-12-18 07:09] LABS: Basophils # 0.1 K/mcL (0.0-0.2); Basophils % 0.5 %; Eosinophils # 0.3 K/mcL (0.0-0.6); Eosinophils % 3.1 %; Hematocrit 24.9 % (35.3-44.9); Immature Granulocytes % 0.3 % (0-4); Lymphocytes % 49.1 %; Mean Corpuscular HGB Conc 32.5 g/dL (31.6-35.5); Mean Corpuscular Hemoglobin 28.3 pg (28.0-33.3); Mean Corpuscular Volume 87.1 fL (83.0-100.0); Mean Platelet Volume 9.5 fL (9.4-12.4); Monocytes # 0.8 K/mcL (0.0-1.3); Platelet Count 157 K/mcL (140-400); Red Blood Count 2.86 M/mcL (3.82-4.97)
[2017-12-18 07:11] LABS: Hemoglobin 8.1 g/dL (11.5-15.4)
[2017-12-18 07:26] LABS: BUN/Creatinine Ratio 38 (6-26); Blood Urea Nitrogen 38 mg/dL (8-23); Calcium 8.5 mg/dL (8.6-10.3); Carbon Dioxide 28 mEq/L (23-29); Chloride 109 mEq/L (98-107); Glucose 112 mg/dL (70-105); Magnesium 1.9 mg/dL (1.6-2.6); Osmolality,Calculated 302 (280-300); Sodium 141 mEq/L (136-145); eGFR For African Americans > 60 (> 60); eGFR For Non-African Americans 54 (> 60)
[2017-12-18] MEDS: Fenofibrate 54 MG TABLET PO SCH (08:10)
[2017-12-18] MEDS: amLODIPine 5 MG TABLET PO SCH (08:10)
[2017-12-18] MEDS: Metoprolol XL (24 HR) Succ 50 MG TAB.ER.24H PO SCH ×2 (08:10→19:44)
[2017-12-18] MEDS: Loperamide 1 MG/5 ML UDC PO SCH (08:11)
[2017-12-18] MEDS: Valsartan 160 MG TABLET PO SCH ×2 (08:11→19:44)
[2017-12-18] MEDS: Aspirin Enteric Coated 81 MG Tablet PO SCH (08:11)
--- NOTE | 2017-12-18 13:42 | Internal Med Progress Note ---
Date of Encounter: 12/18/17 Time of Encounter: 13:40 - Assessment and plan (1) Hip fracture Current Visit: Yes Status: Acute Assessment and plan: Postop day 2 Right hip open reduction intramedullary nail fixation Pain is adequately controlled Working with physical therapy Likely discharge Tuesday Qualifiers: Encounter type: initial encounter Fracture type: closed Laterality: right Qualified Code(s): S72.001A - Fracture of unspecified part of neck of right femur, initial encounter for closed fracture (2) HTN (hypertension) Current Visit: Yes Status: Chronic Assessment and plan: BP well controlled, resume Valsartan due to resolved DIDIER. Continue other home medications. Qualifiers: Hypertension type: essential hypertension Qualified Code(s): I10 - Essential (primary) hypertension (3) HLD (hyperlipidemia) Current Visit: Yes Status: Chronic Assessment and plan: continue home meds Qualifiers: Hyperlipidemia type: unspecified Qualified Code(s): E78.5 - Hyperlipidemia , unspecified (4) Gubes-qc-wtfhywh kidney injury Current Visit: Yes Status: Resolved Assessment and plan: DIDIER resolved, resume valsartan. Qualifiers: Acute renal failure type: unspecified Chronic kidney disease stage: unspecified stage Qualified Code(s): N17.9 - Acute kidney failure, unspecified ; N18.9 - Chronic kidney disease, unspecified (5) DVT prophylaxis Current Visit: Yes Status: Acute Assessment and plan: start Heparin SQ. - Time Spent With Patient Total time spent is greater than 50% in coordination of care (as documented) at patient's floor/unit and/or counseling patient: 25 - 35 minutes - Subjective Interval history: Worked with physical therapy today morning. No complaints. - Constitutional Vitals: Temp Pulse Resp BP Pulse Ox 98.2 F 68 18 118/73 95 12/18/17 06:35 12/18/17 06:35 12/18/17 06:35 12/18/17 06:35 12/18/17 06:35 General appearance: Present: cooperative, A&O X 3, pleasant, no acute distress, answers questions appropriately Exam: Physical exam Gen: Comfortable, laying in bed, in no visible distress HEENT: Normocephalic, atraumatic. No conjunctival icterus. Moist oral mucosa. Neck: Supple Lungs: Clear to auscultation, no foreign sounds Heart: Normal S1-S2, no murmurs rubs or gallops Abdomen: Normoactive bowel sounds, no guarding rigidity or tenderness Extremities: No edema clubbing or cyanosis Neuro: Alert oriented 3, no focal deficits Skin: No skin lesions. Minimal purpura around the surgical incision site. Purpura around the anterior abdominal site. Internal Medicine: Result - Labs CBC & Chem 7: 12/18/17 06:19 12/18/17 06:19 Labs: Short CBC 12/18/17 Range/Units 06:19 WBC 10.1 (4.3-11.1) K/mcL Hgb 8.1 L D (11.5-15.4) g/dL Hct 24.9 L (35.3-44.9) % Plt Count 157 (140-400) K/mcL Neutrophils # 4.0 (1.6-8.9) K/mcL BMP 12/18/17 06:19 Sodium 141 Potassium 4.0 Chloride 109 H Carbon Dioxide 28 BUN 38 H Creatinine 0.99 Glucose 112 H Calcium 8.5 L - ABG Interpretation ABG results: PT/INR, D-dimer PT 11.0 Seconds (9.4-12.1) 12/15/17 22:05 - VTE Documentation of Mechanical Device: Venous foot pump, device Consult Discharge Plan - Plan Referrals: Ed Ramirez MD [Primary Care Provider] -
[2017-12-18] MEDS: 0.9 % Sodium Chloride 1,000 ML IVC SCH (19:15)
[2017-12-18 21:21] LABS: Basophils % 0.4 %; Eosinophils # 0.4 K/mcL (0.0-0.6); Eosinophils % 3.8 %; Hematocrit 24.8 % (35.3-44.9); Hemoglobin 8.5 g/dL (11.5-15.4); Immature Granulocytes % 0.5 % (0-4); Lymphocytes # 5.4 K/mcL (0.6-4.6); Lymphocytes % 49.2 %; Mean Corpuscular HGB Conc 34.3 g/dL (31.6-35.5); Mean Corpuscular Hemoglobin 29.6 pg (28.0-33.3); Mean Corpuscular Volume 86.4 fL (83.0-100.0); Mean Platelet Volume 9.3 fL (9.4-12.4); Monocytes # 0.9 K/mcL (0.0-1.3); Monocytes % 7.9 %; Neutrophils # 4.2 K/mcL (1.6-8.9); Platelet Count 176 K/mcL (140-400); Red Blood Count 2.87 M/mcL (3.82-4.97); Segmented Neutrophils % 38.2 %
[2017-12-19] MEDS: *HR* Heparin 5,000 UNIT/ML VIAL SQ SCH (06:10)
[2017-12-19] MEDS: *HR* HYDROcodone/Acet 5/325 mg TABLET PO PRN ×2 (06:27→13:39)
--- NOTE | 2017-12-19 06:47 | Orthopedics Progress Note ---
Date of Encounter: 12/19/17 Time of Encounter: 06:47 Subjective Interval history: Patient was seen this morning doing well without complaints. Afebrile vital signs stable. Operative extremity: Neurovascularly intact Dressing clean dry and intact Calves nontender Assessment and plan: Continue with postoperative care Stable for discharge Objective Vital signs: Vital Signs Temp Pulse Resp BP Pulse Ox 12/19/17 06:35 99.0 F 76 18 146/72 95 12/19/17 03:42 99.3 F 61 16 125/70 95 12/18/17 23:20 97.9 F 74 16 147/75 93 12/18/17 18:49 99.6 F 77 16 129/77 94 12/18/17 16:20 98 F 73 18 120/70 99 12/18/17 09:50 98.5 F 73 16 123/78 98 Intake and Output 12/18/17 12/18/17 12/19/17 15:59 23:59 07:59 Intake Total 350 / 350 50 / 50 Output Total 250 / 250 Balance 100 / 100 50 / 50 Intake: Oral 350 / 350 50 / 50 Output: Urine 250 / 250 Other: Meal Breakfast Percent of Meal Consumed 75% # Voids 1 # Bowel Movements 1 Weight 76 kg Patient Weight 12/19/17 23:59 Weight 76 kg - Labs CBC & BMP: 12/18/17 21:09 12/18/17 06:19 Labs: Abnormal lab results RBC 2.87 M/mcL (3.82-4.97) L 12/18/17 21:09 Hgb 8.5 g/dL (11.5-15.4) L 12/18/17 21:09 Hct 24.8 % (35.3-44.9) L 12/18/17 21:09 MPV 9.3 fL (9.4-12.4) L 12/18/17 21:09 Lymphocytes # 5.4 K/mcL (0.6-4.6) H 12/18/17 21:09 Chloride 109 mEq/L (98-107) H 12/18/17 06:19 BUN 38 mg/dL (8-23) H 12/18/17 06:19 Est GFR (Non-Af Amer) 54 (> 60) L 12/18/17 06:19 BUN/Creatinine Ratio 38 (6-26) H 12/18/17 06:19 Glucose 112 mg/dL (70-105) H 12/18/17 06:19 Calculated Osmolality 302 (280-300) H 12/18/17 06:19 Calcium 8.5 mg/dL (8.6-10.3) L 12/18/17 06:19 Alkaline Phosphatase 33 Units/L (34-104) L 12/17/17 10:08 Serum Total Protein 5.6 g/dL (6.4-8.9) L 12/17/17 10:08 Globulin 1.9 g/dL (2.4-3.5) L 12/17/17 10:08 - VTE Documentation of Mechanical Device: Venous foot pump, device Consult Discharge Plan - Plan Referrals: Ed Ramirez MD [Primary Care Provider] -
[2017-12-19] MEDS: Fenofibrate 54 MG TABLET PO SCH (09:11)
[2017-12-19] MEDS: Valsartan 160 MG TABLET PO SCH (09:11)
[2017-12-19] MEDS: Loperamide 1 MG/5 ML UDC PO SCH (09:11)
[2017-12-19] MEDS: Aspirin Enteric Coated 81 MG Tablet PO SCH (09:12)
[2017-12-19] MEDS: Metoprolol XL (24 HR) Succ 50 MG TAB.ER.24H PO SCH (09:12)
[2017-12-19] MEDS: amLODIPine 5 MG TABLET PO SCH (09:12)
[2017-12-19 10:46] VITALS: BP 125/70
--- NOTE | 2017-12-19 12:48 | Discharge Summary ---
Date of Encounter: 12/19/17 Time of Encounter: 12:46 - Discharge Diagnosis (1) Hip fracture Priority: Primary Status: Acute Assessment and Plan: s/p surgery recovering well Qualifiers: Encounter type: initial encounter Fracture type: closed Laterality: right Qualified Code(s): S72.001A - Fracture of unspecified part of neck of right femur, initial encounter for closed fracture (2) HTN (hypertension) Priority: Secondary Status: Chronic Assessment and Plan: well controlled Qualifiers: Hypertension type: essential hypertension Qualified Code(s): I10 - Essential (primary) hypertension (3) HLD (hyperlipidemia) Priority: Secondary Status: Chronic Qualifiers: Hyperlipidemia type: unspecified Qualified Code(s): E78.5 - Hyperlipidemia , unspecified (4) Zgxxs-fl-lyjlgwu kidney injury Priority: Secondary Status: Resolved Assessment and Plan: resolved Qualifiers: Acute renal failure type: unspecified Chronic kidney disease stage: unspecified stage Qualified Code(s): N17.9 - Acute kidney failure, unspecified ; N18.9 - Chronic kidney disease, unspecified Hospital course: Ms. Aguilar is a 82 year old female - Time Spent with Patient Total time spent providing and/or coordinating discharge services: - Discharge Medications Home Medications: Amlodipine Besylate 10 mg PO DAILY 12/15/17 [History] Aspirin [Lo-Dose Aspirin EC] 81 mg PO DAILY 12/15/17 [History] Ergocalciferol (VITAMIN D2) [Vitamin D2] 50,000 unit PO QWEEK 12/15/17 [History] Escitalopram [Lexapro] 10 mg PO HS 12/15/17 [History] Esomeprazole Magnesium [Nexium] 40 mg PO DAILY 12/15/17 [History] Fenofibrate Nanocrystallized [Triglide] 160 mg PO DAILY 12/15/17 [History] Metoprolol Succinate [Toprol Xl] 50 mg PO BID 12/15/17 [History] Valsartan 160 mg PO BID 12/15/17 [History] Loperamide [Imodium] 2 mg PO DAILY 12/16/17 [History] HYDROcodone/Acet 10/325 mg [Howe 10-325 mg] 1 each PO Q4H PRN 5 Days #20 tablet 12/19/17 [Rx] Allergies/Adverse Reactions: 3 Allergy/AdvReac Type Severity Reaction Status Date / Time Oxycodone [From Percocet] Allergy Hallucinati Verified 12/15/17 21:04 ng Date of admission: 12/16/17 12:18 Primary care physician: Ed Ramirez MD Discharging clinician: Fredy Jacques Anticipated date of discharge: 12/19/17 - Constitutional Vitals: Temp Pulse Resp BP Pulse Ox 98.7 F 69 18 125/70 95 12/19/17 10:42 12/19/17 10:42 12/19/17 10:42 12/19/17 10:42 12/19/17 10:42 General appearance: Present: cooperative, A&O X 3, pleasant, no acute distress, answers questions appropriately - Patient Status Disposition: Transfer Inpatient Rehab Fac Condition: Good Functional capacity at discharge: independent ambulation Overall status at discharge: patient is progressing back to baseline - Discharge Instructions Follow Up With: Ed Ramirez MD [Primary Care Provider] - Forms: ED Satisfaction Letter - Diet and Activity Activity: increase activity as tolerated Diet: advance to your usual diet - VTE Documentation of Mechanical Device: Venous foot pump, device
--- NOTE | 2017-12-19 12:55 | Physician Discharge Referral ---
ExtendedCare Referral Info Transfer To: rehab Institutional Level of Care: Skilled - Diagnosis (1) Hip fracture Status: Acute (2) HTN (hypertension) Status: Chronic (3) HLD (hyperlipidemia) Status: Chronic (4) Jhpbk-xl-didwtgd kidney injury Status: Resolved - Transfer Medications Home Medications: Amlodipine Besylate 10 mg PO DAILY 12/15/17 [History] Aspirin [Lo-Dose Aspirin EC] 81 mg PO DAILY 12/15/17 [History] Ergocalciferol (VITAMIN D2) [Vitamin D2] 50,000 unit PO QWEEK 12/15/17 [History] Escitalopram [Lexapro] 10 mg PO HS 12/15/17 [History] Esomeprazole Magnesium [Nexium] 40 mg PO DAILY 12/15/17 [History] Fenofibrate Nanocrystallized [Triglide] 160 mg PO DAILY 12/15/17 [History] Metoprolol Succinate [Toprol Xl] 50 mg PO BID 12/15/17 [History] Valsartan 160 mg PO BID 12/15/17 [History] Loperamide [Imodium] 2 mg PO DAILY 12/16/17 [History] HYDROcodone/Acet 10/325 mg [[place] 10-325 mg] 1 each PO Q4H PRN 5 Days #20 tablet 12/19/17 [Rx] Allergies/Adverse Reactions: 3 Allergy/AdvReac Type Severity Reaction Status Date / Time Oxycodone [From Percocet] Allergy Hallucinati Verified 12/15/17 21:04 ng - Respiratory Orders Smoking Cessation: Smoking cessation has been advised. For more information, call the [place] Tobacco Quit Line at 6-509-NGFI-NOW. - Mobility Orders Other - Rehabiliation Orders Rehab Orders: Evaluation for Physical Therapy, Evaluation for Occupational Therapy - Diet Orders Regular CERTIFICATION: I certify that the transfer of the above named patient to an Extended Care Facility is necessary for the continuing treatment of the diagnosis listed. The above information is true and accurate reflection of patient's current condition. Confidential - Redisclosure prohibited without a patient's written consent.
--- NOTE | 2017-12-19 14:46 | Electrocardiograph Report ---
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
== END 2017-12-19 14:35 | DRG 481 ==
LOC: 3NENU 20:43 → EMEROO 20:43 → 3NENU 12-16 00:02
PROVIDERS: ADMIT Student in an Organized Health Care Education/Training Program; ATTEND Family Medicine

== ENCOUNTER 2018-11-13 14:35 | Inpatient (IN) ==
[2018-11-13] MEDS ORDERED: Clindamycin 900 MG/50 ML 900 MG/50 ML IV.SOLN IVPB ONE (14:54)
[2018-11-13] MEDS ORDERED: Ringers Solution, Lactated 1,000 ML IVC SCH (15:00)
--- NOTE | 2018-11-13 15:08 | History & Physical Report ---
Date of Encounter: 11/13/18 Time of Encounter: 15:07 24 Hour HP Update - Instructions Instructions: If the History and Physical is less than 30 days old and was completed prior to A.M. admission and or procedure and has NOT been updated on calendar day of procedure please complete this update prior to performing procedure. - Update Patient reports changes in Medical Condition: No Changes in examination, assessment, or condition: No Changes in Medication: No Preop tests/diagnostics Reviewed: Yes Surgery Remains Indicated: Yes Consent for Planned Operative Procedure(s) Verified: Yes - Pre-Operative Checklist Preoperative Checklist Indicated: No Prophylactic Antibiotic Ordered: Yes Is VTE Prophylaxis Indicated?: Yes
--- NOTE | 2018-11-13 16:12 | Anesthesia Evaluation PreOp ---
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) TECHNICAL OPERATIONS SPECIALIST History: Other (hx brain stumor s/p resection; stroke like symptoms after surgical resection that resolved; required Gamma knife treatment; chronic back pain/sciatica; hx compression fracture of the spine) Other Medical History: Renal (ckd stage 3), GERD, Other (uterine adenocarcinoma s/p surgery) Anesthesia History: Problems (nausea) Alcohol Use: none Drug use: none Medications and Allergies Aspirin [Lo-Dose Aspirin EC] 81 mg PO DAILY 12/15/17 [History] Ergocalciferol (VITAMIN D2) [Vitamin D2] 50,000 unit PO FR 12/15/17 [History] Escitalopram [Lexapro] 10 mg PO HS 12/15/17 [History] Fenofibrate Nanocrystallized [Triglide] 160 mg PO DAILY 12/15/17 [History] Metoprolol Succinate [Toprol Xl] 50 mg PO BID 12/15/17 [History] Amlodipine Besylate 10 mg PO DAILY 11/13/18 [History] Aspirin Enteric Coated [Aspirin EC] 325 mg PO BID 10 Days #20 tablet.dr 11/13/18 [Rx] Docusate Sodium [Colace] 100 mg PO BID 5 Days #10 capsule 11/13/18 [Rx] Esomeprazole Magnesium [Nexium 24Hr] 40 mg PO DAILY 11/13/18 [History] Fluticasone Propionate Nasal [Flonase] 1 spr NS DAILY 11/13/18 [History] Guaifenesin [Mucinex] 600 mg PO Q12H PRN 11/13/18 [History] HYDROcodone/Acet 5/325 mg [[place] 5-325 mg] 1 tab PO Q6H PRN 5 Days #20 tab 11/13/18 [Rx] Loperamide HCl [Imodium A-D] 2 mg PO BID PRN 11/13/18 [History] Valsartan 160 mg PO DAILY 11/13/18 [History] Allergy/AdvReac Type Severity Reaction Status Date / Time Amoxicillin Allergy Rash Verified 11/13/18 15:10 cefdinir [From Omnicef] Allergy Rash Verified 11/13/18 15:10 oxycodone [From Percocet] Allergy Hallucinati Verified 11/13/18 15:10 ng Onnezdh-Mvs-Rra Reductase Allergy See Verified 11/13/18 15:10 Inhibitor Comments [Statins] - Meds/Allergy Pre-op Review Medications Reviewed: Yes Allergies Reviewed: Yes Beta Blockers on Current Med List: Yes (toprol xl) If Beta Blockers taken, Date/Time (Last Dose taken): 11-13-18 toprol xl at 9:30 Anesthesia Results - Labs Laboratory Tests 10/30/18 10/30/18 11/06/18 10:29 10:29 15:52 WBC 9.7 Hgb 11.7 Hct 36.5 Plt Count 184 PT 10.7 INR 1.0 APTT 26.1 Sodium 138 Potassium 4.2 Chloride 105 Carbon Dioxide 25 BUN 51 H Creatinine 1.10 Est GFR ( Amer) 57 L Est GFR (Non-Af Amer) 47 L BUN/Creatinine Ratio 46 H Glucose 98 Calculated Osmolality 300 Calcium 10.0 Magnesium 1.9 - Imaging EKG: report reviewed, image reviewed (SINUS BRADYCARDIA MARKED LEFT AXIS DEVIATION MODERATE INTRAVENTRICULAR CONDUCTION DELAY NONSPECIFIC ST & T-WAVE ABNORMALITY SIGNIFICANT ARTIFACT) Anesthesia Exam Last Vital Signs Temp 97.9 F 11/13/18 14:57 Pulse 58 11/13/18 14:57 Resp 16 11/13/18 14:57 BP 140/67 11/13/18 14:57 Pulse Ox 94 11/13/18 14:57 Weight: 70 kg NPO (# of Hours): > 8 hrs - HEENT Pupil (Motor): Pupils equal, EOMI Mallampati: III Teeth: Normal Oral Opening: Greater than 3 - TECHNICAL OPERATIONS SPECIALIST LOC: Oriented - Cardiac Rhythm: Regular Murmur: None - Pulmonary Breath Sounds: bilateral Clear Respiratory Effort: Symmetrical Anesthesia Assess/Plan ASA Score: 3 Level of consciousness: Cooperative Anesthetic Plan: General Reason for No Neuroaxial/Regional Block: Patient refusal (Patient with multiple back issues - compression fractures/arthritis/chronic pain) Monitoring Plan: Standard Monitors Recovery Plan: PACU
[2018-11-13] MEDS ORDERED: *HR* HYDROmorphone (PF) 1 MG/ML SYRINGE IVP PRN (16:17)
[2018-11-13] MEDS ORDERED: Ethanol\\Acetic Acid\\Na Ace\\Ben 1,000 ML IRRIG.SOLN IR ONE (16:20)
[2018-11-13] MEDS ORDERED: Propofol 500 MG/50 ML INFUS..BTL ONE ×2 (16:28→17:38)
[2018-11-13] MEDS ORDERED: *HR* FentaNYL (PF) 100 MCG/2 ML VIAL ONE (16:29)
[2018-11-13] MEDS ORDERED: *HR* Propofol 200 MG/20 ML VIAL IVP ONE (16:29)
[2018-11-13] MEDS ORDERED: Lidocaine -MPF 2% 2 ML VIAL ONE (16:31)
[2018-11-13] MEDS ORDERED: *HR* Succinylcholine 200 MG/10 ML VIAL IVP ONE (16:31)
[2018-11-13] MEDS ORDERED: Tranexamic Acid 1,000 MG/10 ML VIAL ONE (16:54)
[2018-11-13] MEDS ORDERED: Ondansetron 4 MG/2 ML VIAL ONE (16:54)
[2018-11-13] MEDS ORDERED: *HR* HYDROMORPHONE 2 MG/ML VIAL ONE (17:05)
[2018-11-13] MEDS ORDERED: *HR* Enoxaparin 30 MG/0.3 ML SYRINGE SQ SCH (18:00)
--- NOTE | 2018-11-13 18:03 | Discharge Summary ---
Orders not resulted at time of discharge: Pending orders 11/13/18 01:00 XR hip complete RT [XR] Routine Hemoglobin and Hematocrit [HEME] Routine 11/13/18 17:36 Culture,Anaerobic [RM] Stat Culture,Wound [RM] Stat Gram Stain [RM] Stat Date of Encounter: 11/17/18 Time of Encounter: 11:15 - Discharge Diagnosis (1) Status post total hip replacement, right Priority: Primary Status: Acute (2) Osteoarthritis of right hip Priority: Secondary Status: Chronic Qualifiers: Osteoarthritis type: unspecified Qualified Code(s): M16.11 - Unilateral primary osteoarthritis, right hip (3) GERD (gastroesophageal reflux disease) Priority: Secondary Status: Chronic Qualifiers: Esophagitis presence: esophagitis presence not specified Qualified Code(s): K21.9 - Gastro-esophageal reflux disease without esophagitis (4) CKD (chronic kidney disease) stage 3, GFR 30-59 ml/min Priority: Secondary Status: Chronic (5) History of brain tumor Priority: Secondary Status: Chronic (6) History of uterine cancer Priority: Secondary Status: Chronic (7) ADILENE (obstructive sleep apnea) Priority: Secondary Status: Chronic (8) CAD (coronary artery disease) Priority: Secondary Status: Chronic Qualifiers: Coronary Disease-Associated Artery/Lesion type: unspecified vessel or lesion type [place] vs. transplanted heart: [place] heart Associated angina: angina presence unspecified Qualified Code(s): I25.10 - Atherosclerotic heart disease of [place] coronary artery without angina pectoris (9) HLD (hyperlipidemia) Priority: Secondary Status: Chronic Qualifiers: Hyperlipidemia type: unspecified Qualified Code(s): E78.5 - Hyperlipidemia, unspecified (10) HTN (hypertension) Priority: Secondary Status: Chronic Qualifiers: Hypertension type: essential hypertension Qualified Code(s): I10 - Essential (primary) hypertension (11) Acute blood loss anemia Priority: Secondary Status: Acute (12) Allergy to multiple antibiotics Priority: Secondary Status: Chronic (13) Infection of right prosthetic hip joint Priority: Secondary Status: Acute Qualifiers: Encounter type: initial encounter Qualified Code(s): T84.51XA - Infection and inflammatory reaction due to internal right hip prosthesis, initial encounter (14) 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 Aguilar is a 83 year old female status post removal of trochanteric femoral nail and THR 11/13/18 with medical history of OA, HTN, GERD, CKD3, ADILENE, CAD, history of brain tumor and uterine cancer. She participated in therapy and due to revision surgery will require her to wear a knee immobilizer with no knee flexion until follow up in office. Intraoperative cultures did reveal +MRSA. She was started on IV vancomycin but developed a reaction at IV site with itching and swelling to arm. Symptoms improved after stopping vancomycin and giving benadryl. Infectious disease was consulted and recommended IV daptomycin and PO rifampin plan for 6 weeks. assisted IV access placed. She also developed postoperative anemia and received 1 unit RBC transfusion. She is stable for discharge to ECF and will follow up in [facility] office next week. PCR - POD#3 s/p Right hip removal of hardware and right hip hemiarthroplasty 11/13/18 Patient seen at bedside, without complaints. A&O x 3 Afebrile, vital signs stable. Dressings noted to have small amount bloody drainage to posterior end of incision will continue to monitor, stable with no increase in last 2 days and appears older. Will have dressings changed today. no calf tenderness to palpation, good dorsiflexion of foot, sensation intact distally. knee immobilizer in place. Labs reviewed. H/H - 7.9/24.6 - will give 1 unit RBC transfusion kidney function stable, CKD Intraop wound cx showed positive MRSA. ID recommends daptomycin 6 mg/kg IV daily and rifampin 300mg PO TID, plan for 6 weeks. Vascular access team to insert detention IV access today Pain control: adequate Participating in PT. (knee immobilizer in place-NO KNEE FLEXION), WBAT All questions and concerns addressed. Educated on use of incentive spirometer. Encouraged ambulation and proper hydration. Patient educated on post-operative restrictions and post-operative care. Assessment and plan: Continue with postoperative care Discharge plan: ECF planned for discharge today pending PICC line placement and repeat labs after transfusion - Time Spent with Patient Total time spent providing and/or coordinating discharge services: - Discharge Medications Prescriptions: Continue Metoprolol Succinate [Toprol Xl] 50 mg PO BID Escitalopram [Lexapro] 10 mg PO HS Ergocalciferol (VITAMIN D2) [Vitamin D2] 50,000 unit PO FR Fenofibrate Nanocrystallized [Triglide] 160 mg PO DAILY Aspirin [Lo-Dose Aspirin EC] 81 mg PO DAILY Amlodipine Besylate 10 mg PO DAILY Esomeprazole Magnesium [Nexium 24Hr] 40 mg PO DAILY Fluticasone Propionate Nasal [Flonase] 1 spr NS DAILY Guaifenesin [Mucinex] 600 mg PO Q12H PRN PRN Reason: Congestion Loperamide HCl [Imodium A-D] 2 mg PO BID PRN PRN Reason: Diarrhea Valsartan 160 mg PO BID Home Medications: Aspirin [Lo-Dose Aspirin EC] 81 mg PO DAILY 12/15/17 [History] Ergocalciferol (VITAMIN D2) [Vitamin D2] 50,000 unit PO FR 12/15/17 [History] Escitalopram [Lexapro] 10 mg PO HS 12/15/17 [History] Fenofibrate Nanocrystallized [Triglide] 160 mg PO DAILY 12/15/17 [History] Metoprolol Succinate [Toprol Xl] 50 mg PO BID 12/15/17 [History] Amlodipine Besylate 10 mg PO DAILY 11/13/18 [History] Esomeprazole Magnesium [Nexium 24Hr] 40 mg PO DAILY 11/13/18 [History] Fluticasone Propionate Nasal [Flonase] 1 spr NS DAILY 11/13/18 [History] Guaifenesin [Mucinex] 600 mg PO Q12H PRN 11/13/18 [History] Loperamide HCl [Imodium A-D] 2 mg PO BID PRN 11/13/18 [History] Valsartan 160 mg PO BID 11/13/18 [History] Allergies/Adverse Reactions: Allergy/AdvReac Type Severity Reaction Status Date / Time Amoxicillin Allergy Rash Verified 11/13/18 15:10 cefdinir [From Omnicef] Allergy Rash Verified 11/13/18 15:10 oxycodone [From Percocet] Allergy Hallucinati Verified 11/13/18 15:10 ng Lvhrqeo-Jwz-Pcs Reductase Allergy See Verified 11/13/18 15:10 Inhibitor Comments [Statins] vancomycin Allergy Hives Verified 11/16/18 00:03 Date of admission: 11/13/18 Primary care physician: Ed Ramirez MD Consults: 11/13/18 21:57 Consult to Nurse Navigator [CONS] Routine Comment: ortho navigator Consult to Nutrition [CONS] Routine Comment: Consulting Provider: NUTRITION Reason for Dietary Consult: Other Other:: Proper nutrition to facilitate wound healing Consult to Occupational Therapy [CONS] Routine Comment: Evaluate, develop and implement POC Reason for Consult: total hip replacement Does patient have active BEDREST order?: No Is patient medically & hemodynamically stable?: Yes Consult to Physical Therapy [CONS] Routine Comment: Evaluate, develop and implement POC Reason for Consult: total hip replacement Does patient have active BEDREST order?: No Is patient medically & hemodynamically stable?: Yes Consult to Slitter Creaser Slotter Operator [CONS] Routine Reason for SW Consult: post op joint replacement RT Post Op Consult [CONS] Routine 11/15/18 10:04 Consult to Infectious Diseases [CONS] Routine Consulting Provider: Infectious Disease Shahida Reason for Consult: positive surgical culture Time Notified: 10:05 Call Completed: Yes 11/16/18 11:09 Consult to Invasive Line Access Team [CONS] Routine Reason for Consult: home atb Line Type: Midline Discharging clinician: Westley Flynn Anticipated date of discharge: 11/16/18 Labs on day of discharge: Vital Signs Temp Pulse Pulse Resp BP Pulse Ox 11/16/18 12:40 98.5 F 66 16 110/67 98 11/16/18 11:57 97.6 F 76 16 120/65 96 11/16/18 11:42 70 14 123/70 11/16/18 10:25 72 11/16/18 10:00 98.1 F 78 16 114/68 98 11/16/18 09:25 70 11/16/18 08:09 98.4 F 70 16 110/67 94 11/16/18 06:18 98 F 87 18 134/68 96 11/15/18 23:19 97.9 F 84 17 132/61 96 11/15/18 21:49 93 11/15/18 20:54 98.1 F 80 134/69 93 11/15/18 19:05 97.9 F 83 16 147/76 96 11/15/18 16:24 98.2 F 79 12 133/72 11/15/18 13:11 96 Intake and Output 11/15/18 11/16/18 11/16/18 23:59 07:59 15:59 Intake Total 100 / 100 480 / 480 Output Total 700 / 700 Balance -600 / -600 480 / 480 Intake: Oral 100 / 100 480 / 480 Blood Product 0 / 0 Rbcs Leuko Poor As-1 Unit 0 / 0 [id number] Output: Urine 700 / 700 Other: Meal Breakfast Percent of Meal Consumed 75% # Voids 1 Weight 77.9 kg Patient Weight 11/16/18 23:59 Weight 77.9 kg Short CBC 11/16/18 Range/Units 03:29 WBC 12.3 H (4.3-11.1) K/mcL Hgb 7.9 L (11.5-15.4) g/dL Hct 24.6 L (35.3-44.9) % Plt Count 140 (140-400) K/mcL Neutrophils # 4.1 (1.6-8.9) K/mcL BMP 11/15/18 Range/Units 07:22 Sodium 138 (136-145) mEq/L Potassium 4.4 (3.5-5.1) mEq/L Chloride 104 (98-107) mEq/L Carbon Dioxide 30 H (23-29) mEq/L BUN 39 H (8-23) mg/dL Creatinine 0.99 (0.60-1.20) mg/dL Glucose 114 H (70-105) mg/dL Calcium 9.0 (8.6-10.3) mg/dL Liver Function 11/16/18 Range/Units 11:07 Total Bilirubin 0.6 (0.3-1.0) mg/dL Direct Bilirubin 0.2 (0.0-0.2) mg/dL AST 17 (13-39) Units/L ALT 37 (7-52) Units/L Alkaline Phosphatase 37 (34-104) Units/L Albumin 3.5 (3.5-5.7) g/dL - Impressions Hip X-Ray 11/13/18 01:00 IMPRESSION: Expected new changes of right hip unipolar arthroplasty. D/ / Wale John MD / Wale John MD Interpreting Provider: Wale John MD - Patient Status Disposition: Transfer Hospital Swing Bed Condition: Good Functional capacity at discharge: uses cane/walker Overall status at discharge: patient is progressing back to baseline - Discharge Instructions Follow Up With: Christiane Arthur GEOSCIENCE LABORATORY TECHNICIAN [Advanced Practice Nurse] - 11/30/18 1:45 pm Ed Ramirez MD [Primary Care Provider] - - Diet and Activity Activity: ambulate only with your walker, as per physical therapy Diet: advance to your usual diet
--- NOTE | 2018-11-13 18:04 | Physician Discharge Referral ---
ExtendedCare Referral Info Transfer To: [facility] Provider in Charge: Dr. Flynn - Diagnosis (1) Status post total hip replacement, right Priority: Primary Status: Acute (2) Osteoarthritis of right hip Priority: Primary Status: Chronic (3) CAD (coronary artery disease) Priority: Secondary Status: Chronic (4) CKD (chronic kidney disease) stage 3, GFR 30-59 ml/min Priority: Secondary Status: Chronic (5) GERD (gastroesophageal reflux disease) Priority: Secondary Status: Chronic (6) History of brain tumor Priority: Secondary Status: Chronic (7) History of uterine cancer Priority: Secondary Status: Chronic (8) ADILENE (obstructive sleep apnea) Priority: Secondary Status: Chronic (9) HLD (hyperlipidemia) Priority: Secondary Status: Chronic (10) HTN (hypertension) Priority: Secondary Status: Chronic (11) Acute blood loss anemia Priority: Secondary Status: Acute (12) Infection of right prosthetic hip joint Priority: Secondary Status: Acute (13) Allergy to multiple antibiotics Priority: Secondary Status: Chronic (14) 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 Expected Duration of Placement: <30 days Prognosis: Good Aware of Diagnosis: Patient Aware of Prognosis: Patient - Transfer Medications Home Medications: Aspirin [Lo-Dose Aspirin EC] 81 mg PO DAILY 12/15/17 [History] Ergocalciferol (VITAMIN D2) [Vitamin D2] 50,000 unit PO FR 12/15/17 [History] Escitalopram [Lexapro] 10 mg PO HS 12/15/17 [History] Fenofibrate Nanocrystallized [Triglide] 160 mg PO DAILY 12/15/17 [History] Metoprolol Succinate [Toprol Xl] 50 mg PO BID 12/15/17 [History] Amlodipine Besylate 10 mg PO DAILY 11/13/18 [History] Esomeprazole Magnesium [Nexium 24Hr] 40 mg PO DAILY 11/13/18 [History] Fluticasone Propionate Nasal [Flonase] 1 spr NS DAILY 11/13/18 [History] Guaifenesin [Mucinex] 600 mg PO Q12H PRN 11/13/18 [History] Loperamide HCl [Imodium A-D] 2 mg PO BID PRN 11/13/18 [History] Valsartan 160 mg PO BID 11/13/18 [History] Allergies/Adverse Reactions: Allergy/AdvReac Type Severity Reaction Status Date / Time Amoxicillin Allergy Rash Verified 11/13/18 15:10 cefdinir [From Omnicef] Allergy Rash Verified 11/13/18 15:10 oxycodone [From Percocet] Allergy Hallucinati Verified 11/13/18 15:10 ng Xkjekum-Giz-Toe Reductase Allergy See Verified 11/13/18 15:10 Inhibitor Comments [Statins] vancomycin Allergy Hives Verified 11/16/18 00:03 - Respiratory Orders Smoking Cessation: Smoking cessation has been advised. For more information, call the [employer] Quit Line at 2-319-SUDS-NOW. - Ancillary Orders May use pressure relief devices daily prn, May go on TYLER w/family/respon democrat w/meds at nurse discretion PRN, May consult with Dentist, Enrollment Clerk, Metal Gauge Maker PRN - Advance Directives Code Status: Full Code - Mobility Orders Chair, Ambulate - Rehabiliation Orders Rehab Potential: Good Rehab Orders: ROM Exercises, Evaluation for Occupational Therapy Other: Opsite dressing, leave intact until first post-operative visit. If dressing becomes >50% saturated, contact office, remove dressing and place appropriate dressing in its place. Do not allow for dressing to get wet. Zipline/Cristhian in place, plan to remove at post-operative day #14-16. Total Joint Precautions x 6 weeks Apply cold therapy wrap 3-6x/day for 20 minutes at a time. Encourage ambulation throughout the day Use Incentive spirometer 10x/hour. Elevate affected extremity above heart as tolerated. Brace: Wear hip abductor brace at night x 6 weeks. - Treatments Skin tear care topically daily PRN per policy List/Other: Per Infectious Disease: Continue daptomycin 6 mg/kg IV daily (baseline CK 101). Start rifampin 300mg PO TID. (CrCl ~30). Duration of treatment depends on the clinical picture, but likely a total of 6 weeks. Monitor renal function for drug toxicity and dose adjust antibiotics. Will need weekly CBC, BUN/Cr, ESR, CRP, and CK level. Will need weekly IV care per protocol. - Diet Orders Regular CERTIFICATION: I certify that the transfer of the above named patient to an Extended Care Facility is necessary for the continuing treatment of the diagnosis listed. The above information is true and accurate reflection of patient's current condition. Confidential - Redisclosure prohibited without a patient's written consent.
--- NOTE | 2018-11-13 18:15 | Orthopedic Operative Note ---
Date of procedure: 11/13/18 Pre-op diagnosis: Right hip malunion with hardware protrusion through femoral head Post-op diagnosis: same Procedure: Procedure: Right hip removal of hardware and right hip hemiarthroplasty Estimated blood loss: 400 cc Hardware: Metal and polyethylene replacement. Bipolar Ebony Femoral size stem 127 mm x 12 cylindrical stem 21 standard cone body Head: +0 head with Jane 45 mm Patient with malunion of previous trochanteric fracture with protrusion of hardware through femoral head there was no damage to the acetabulum. Patient was converted and the hardware was removed today right hip hemiarthroplasty. Bipolar Operative procedure: The patient was brought to the operating room and placed on the operating room table. After general anesthesia was administered the patient was placed in the lateral decubitus position with the operative leg up. All pressure points were padded appropriately and the head was stabilized in the neutral position. The operative extremity was prepped and draped in the sterile surgical fashion patient received IV antibiotic prior to skin incision. 3 Steinmann pins were placed in the iliac crest 3 cm proximal to the anterior superior iliac spine this was for the robotic-assisted sensor. This was done through a small 2 cm incision. A standard posterior approach is made to the operative hip, the incision incorporated the old incision, was made through the skin and subcutaneous tissue hemostasis was obtained with Bovie cautery. Using careful sharp dissection the fascia was identified and incised exposing the external rotators. The greater trochanter was marked, and length was measured at this time utilizing robotic assistance. Anterolateral the helical blade was identified. Cleaned of bone and soft tissue debris, attention was then turned to the proximal aspect of the trochanteric femoral nail, this was identified as well and cleared of debris the proximal locking screw was disengaged. The extraction device was engaged. The helical blade was removed followed by the femoral nail without incident. Attention was then turned to the hip replacement procedure. The external rotators were released off the greater trochanter and tagged with #2 FiberWire suture. The capsule was T'd open and the hip was brought into internal rotation. Patient noted to have grade 4 arthritic changes femoral head. The patient had a large hole with the helical blade exited. The femoral neck cut was made at the appropriate level roughly 10mm proximal to the lesser trochanter. Examination of the acetabulum at this time revealed no evidence of acetabular injury. Decision at this point time based on the patient's age, bone quality and thinness of medial wall was to proceed with a bipolar hip hemiarthroplasty. This was done without robotic assistance. The hip was brought back in to internal rotation and prepared with the picker box operator followed by the canal finder followed by the reaming process to 12 x 127 mm. The proximal portion was reamed for a 21 standard cone body. Trial reduction with the cone body in 20 degrees of anteversion showed good stability and motion with a +0 45 mm head. Trials were removed real components were seated and secured. Hip was reduced. The hip had good stability stability with forward flexion to 90 degrees adduction of 30 degrees and internal rotation of 60 degrees. The hip had no shuck. The hip sat with an antibacterial solution. It was irrigated out with 2 L of pulse irrigation. The Steinmann pins were removed. The hip was closed by the PA. The deep tissue was irrigated and closed deep with #1 PDS suture superficially with 0 PDS suture and skin was closed with Dermabond and zip tie. The patient was placed in a sterile dressing and abduction pillow. The patient was extubated and transferred to the recovery room in stable condition. Anesthesia: GETA Surgeon: Westley Flynn Was there an bilingual sales assistant present: No Estimated blood loss (cc): 400 Condition: stable Disposition: PACU
[2018-11-13] MEDS ORDERED: *HR* PHENYLEPHRINE 1,000 MCG/10 ML SYRINGE IVP ONE (18:38)
[2018-11-13 19:29] LABS: Hematocrit 33.5 % (35.3-44.9); Hemoglobin 10.5 g/dL (11.5-15.4)
--- NOTE | 2018-11-13 19:35 | Anesthesia Evaluation Post Op ---
Date of Encounter: 11/13/18 Time of Encounter: 19:34 - Vital Signs Vital Signs: Vital Signs/O2 Sat, Most Current Temp Pulse Resp BP Pulse Ox 97.3 F L 60 12 128/62 96 11/13/18 19:11 11/13/18 19:31 11/13/18 19:31 11/13/18 19:31 11/13/18 19:31 - Lungs Lungs: Clear Ascult./Percussion - Airway Airway: Non-obstructed - Cardiovascular Regular Rate - Mental Status Mental Status: Alert & Oriented, Answers Appropriately - Pain Pain Scale: 0 Pain Scale used: Numeric (1 - 10) - Nausea Vomiting Nausea Vomiting: Not Present - Hydration Hydration: Ice chips, Has not voided - Discharge PostOp Status: Transfer Patient to floor
[2018-11-13] MEDS ORDERED: Temazepam 15 MG CAPSULE PO PRN (21:57)
[2018-11-13] MEDS ORDERED: *HR* Promethazine 25 MG/ML VIAL IVP PRN (21:57)
[2018-11-13] MEDS ORDERED: Naloxone 0.4 MG/ML INJ IVP PRN (21:57)
[2018-11-13] MEDS ORDERED: HYDROcodone BIT/Homatropine 5 MG TABLET PO PRN (21:57)
[2018-11-13] MEDS ORDERED: Sennosides 8.6 MG TABLET PO PRN (21:57)
[2018-11-13] MEDS ORDERED: MOM Conc 10 ML UD.LIQ PO PRN (21:57)
[2018-11-13] MEDS ORDERED: Clindamycin 900 MG/50 ML 900 MG/50 ML IV.SOLN IVPB SCH (21:57)
[2018-11-13] MEDS ORDERED: Ondansetron 4 MG/2 ML VIAL IVP PRN (21:57)
[2018-11-13] MEDS ORDERED: *HR* HYDROcodone/Acet 10/325 mg TABLET PO PRN (21:57)
[2018-11-13] MEDS: Metoprolol XL (24 HR) Succ 50 MG TAB.ER.24H PO SCH (23:07)
[2018-11-13] MEDS: Ascorbic Acid 500 MG TABLET PO SCH (23:13)
[2018-11-14] MEDS: Clindamycin 900 MG/50 ML 900 MG/50 ML IV.SOLN IVPB SCH ×2 (00:12→08:57)
[2018-11-14 03:39] LABS: Basophils % 0.2 %; Eosinophils % 0.2 %; Hemoglobin 10.3 g/dL (11.5-15.4); Immature Granulocytes % 0.3 % (0-4); Lymphocytes # 2.9 K/mcL (0.6-4.6); Lymphocytes % 23.3 %; Mean Corpuscular HGB Conc 32.2 g/dL (31.6-35.5); Mean Corpuscular Hemoglobin 27.8 pg (28.0-33.3); Mean Corpuscular Volume 86.3 fL (83.0-100.0); Mean Platelet Volume 8.8 fL (9.4-12.4); Monocytes # 0.8 K/mcL (0.0-1.3); Monocytes % 6.4 %; Neutrophils # 8.6 K/mcL (1.6-8.9); Platelet Count 167 K/mcL (140-400); Red Blood Count 3.71 M/mcL (3.82-4.97); Red Cell Distribution Width 14.3 % (11.5-14.5); Segmented Neutrophils % 69.6 %
[2018-11-14 03:58] LABS: BUN/Creatinine Ratio 47 (6-26); Blood Urea Nitrogen 40 mg/dL (8-23); Calcium 9.4 mg/dL (8.6-10.3); Carbon Dioxide 28 mEq/L (23-29); Chloride 103 mEq/L (98-107); Glucose 147 mg/dL (70-105); Osmolality,Calculated 296 (280-300); Potassium 5.1 mEq/L (3.5-5.1); Sodium 137 mEq/L (136-145); eGFR For Non-African Americans > 60 (> 60)
--- NOTE | 2018-11-14 06:20 | Orthopedics Progress Note ---
Date of Encounter: 11/14/18 Time of Encounter: 06:19 Subjective Interval history: Patient was seen this morning doing well without complaints. Afebrile vital signs stable. Operative extremity: Neurovascularly intact Dressing clean dry and intact Calves nontender Assessment and plan: Continue with postoperative care Hematocrit 32 Objective Vital signs: Vital Signs Temp Pulse Resp BP Pulse Ox 11/14/18 04:36 97.9 F 62 16 127/70 95 11/14/18 00:07 98.6 F 56 15 97 11/13/18 23:05 58 125/77 11/13/18 22:51 97.5 F L 52 16 147/78 99 11/13/18 22:00 57 15 139/81 99 11/13/18 21:41 97.0 F L 58 14 106/64 96 11/13/18 21:31 60 16 125/72 98 11/13/18 21:21 53 14 120/62 97 11/13/18 21:11 97.0 F L 56 14 127/61 97 11/13/18 21:01 56 14 127/70 99 11/13/18 20:51 60 14 121/63 96 11/13/18 20:41 97.0 F L 56 14 107/65 96 11/13/18 20:31 59 12 121/64 95 11/13/18 20:21 57 14 116/63 98 11/13/18 20:11 97.5 F L 61 12 117/59 96 11/13/18 20:01 58 14 109/63 95 11/13/18 19:51 56 14 112/60 96 11/13/18 19:41 97.0 F L 60 12 126/62 96 11/13/18 19:31 60 12 128/62 96 11/13/18 19:21 58 12 127/62 95 11/13/18 19:11 97.3 F L 61 12 134/67 97 11/13/18 19:01 60 12 137/79 96 11/13/18 18:51 56 16 137/64 93 11/13/18 18:41 97.2 F L 59 16 148/78 97 11/13/18 14:57 97.9 F 58 16 140/67 94 Intake and Output 11/13/18 11/13/18 11/14/18 15:59 23:59 07:59 Intake Total 50 / 50 150 / 150 Output Total 800 / 800 0 / 0 Balance -750 / -750 150 / 150 Intake: IV Fluids 50 / 50 50 / 50 Cleocin Premix 900 MG/50 ML 900 50 / 50 50 / 50 mg In 50 ml @ 50 mls/hr IVPB Q8H [facility] Rx#:[id number] Oral 0 / 0 100 / 100 Output: Urine 500 / 500 0 / 0 Estimated Blood Loss 300 / 300 Other: Weight 70.307 kg 77.8 kg Patient Weight 11/14/18 23:59 Weight 77.8 kg - Labs CBC & BMP: 11/14/18 03:02 11/14/18 03:02 Labs: Abnormal lab results WBC 12.3 K/mcL (4.3-11.1) H 11/14/18 03:02 RBC 3.71 M/mcL (3.82-4.97) L 11/14/18 03:02 Hgb 10.3 g/dL (11.5-15.4) L 11/14/18 03:02 Hct 32.0 % (35.3-44.9) L 11/14/18 03:02 MCH 27.8 pg (28.0-33.3) L 11/14/18 03:02 MPV 8.8 fL (9.4-12.4) L 11/14/18 03:02 BUN 40 mg/dL (8-23) H 11/14/18 03:02 BUN/Creatinine Ratio 47 (6-26) H 11/14/18 03:02 Glucose 147 mg/dL (70-105) H 11/14/18 03:02 Consult Discharge Plan - Plan Referrals: Ed Ramirez MD [Primary Care Provider] -
[2018-11-14] MEDS: traMADol 50 MG TABLET PO PRN ×3 (06:37→21:08)
[2018-11-14] MEDS: *HR* Enoxaparin 30 MG/0.3 ML SYRINGE SQ SCH ×2 (06:38→18:01)
[2018-11-14] MEDS: Aspirin Enteric Coated 81 MG Tablet PO SCH (08:56)
[2018-11-14] MEDS: amLODIPine 5 MG TABLET PO SCH (08:56)
[2018-11-14] MEDS: Valsartan 160 MG TABLET PO SCH ×2 (08:56→21:09)
[2018-11-14] MEDS: Metoprolol XL (24 HR) Succ 50 MG TAB.ER.24H PO SCH ×2 (08:56→21:09)
[2018-11-14] MEDS: Ascorbic Acid 500 MG TABLET PO SCH ×2 (08:56→18:01)
[2018-11-14] MEDS: Multivit/Ca/Min/Fe/FA 1 TAB TABLET PO SCH (08:56)
[2018-11-14] MEDS: Fenofibrate 54 MG TABLET PO SCH (08:56)
[2018-11-14] MEDS ORDERED: Valsartan 160 MG TABLET PO SCH (09:00)
[2018-11-14] MEDS: Fluticasone Propionate Nasal 50 MCG/SPRAY BOTTLE NS SCH (09:04)
--- NOTE | 2018-11-14 16:57 | Event Note ---
Date of Encounter: 11/14/18 Time of Encounter: 12:40 PCR - POD#1 s/p Right hip removal of hardware and right hip hemiarthroplasty 11/13/18 Patient seen at bedside, without complaints. A&O x 3 Afebrile, vital signs stable. Dressings noted to have small amount bloody drainage to posterior end of incision will continue to monitor. no calf tenderness to palpation, good dorsiflexion of foot, sensation intact distally Labs reviewed. H/H - 10.3/32.0 stable, asymptomatic kidney function stable, CKD Pain control: adequate Participating in PT. (knee immobilizer in place-NO KNEE FLEXION), WBAT All questions and concerns addressed. Educated on use of incentive spirometer. Encouraged ambulation and proper hydration. Patient educated on post-operative restrictions and post-operative care. Assessment and plan: Continue with postoperative care Discharge plan: ECF planned for 11/16/18
[2018-11-15] MEDS: *HR* Enoxaparin 30 MG/0.3 ML SYRINGE SQ SCH ×2 (06:21→17:10)
--- NOTE | 2018-11-15 06:38 | Orthopedics Progress Note ---
Date of Encounter: 11/15/18 Time of Encounter: 06:38 Subjective Interval history: Patient was seen this morning doing well without complaints. Afebrile vital signs stable. Operative extremity: Neurovascularly intact Dressing clean dry and intact Calves nontender Assessment and plan: Continue with postoperative care discharge when placement approved Objective Vital signs: Vital Signs Temp Pulse Resp BP Pulse Ox 11/14/18 23:10 99.6 F 72 17 125/71 91 11/14/18 18:52 99.8 F H 72 16 119/68 92 11/14/18 15:27 98.7 F 70 16 127/65 95 11/14/18 07:58 98.8 F 66 12 145/72 99 Intake and Output 11/14/18 11/14/18 11/15/18 15:59 23:59 07:59 Other: # Voids 1 - Labs CBC & BMP: 11/14/18 03:02 11/14/18 03:02 Labs: Abnormal lab results WBC 12.3 K/mcL (4.3-11.1) H 11/14/18 03:02 RBC 3.71 M/mcL (3.82-4.97) L 11/14/18 03:02 Hgb 10.3 g/dL (11.5-15.4) L 11/14/18 03:02 Hct 32.0 % (35.3-44.9) L 11/14/18 03:02 MCH 27.8 pg (28.0-33.3) L 11/14/18 03:02 MPV 8.8 fL (9.4-12.4) L 11/14/18 03:02 BUN 40 mg/dL (8-23) H 11/14/18 03:02 BUN/Creatinine Ratio 47 (6-26) H 11/14/18 03:02 Glucose 147 mg/dL (70-105) H 11/14/18 03:02 Consult Discharge Plan - Plan Referrals: Ed Ramirez MD [Primary Care Provider] -
[2018-11-15 07:46] LABS: Basophils % 0.3 %; Eosinophils # 0.2 K/mcL (0.0-0.6); Eosinophils % 1.8 %; Immature Granulocytes % 0.4 % (0-4); Lymphocytes # 5.9 K/mcL (0.6-4.6); Lymphocytes % 52.6 %; Mean Corpuscular HGB Conc 32.2 g/dL (31.6-35.5); Mean Corpuscular Hemoglobin 27.8 pg (28.0-33.3); Mean Corpuscular Volume 86.3 fL (83.0-100.0); Mean Platelet Volume 8.7 fL (9.4-12.4); Monocytes % 8.9 %; Neutrophils # 4.1 K/mcL (1.6-8.9); Platelet Count 143 K/mcL (140-400); Red Blood Count 3.13 M/mcL (3.82-4.97); Red Cell Distribution Width 14.7 % (11.5-14.5)
[2018-11-15 07:57] LABS: Hemoglobin 8.7 g/dL (11.5-15.4)
[2018-11-15] MEDS: Valsartan 160 MG TABLET PO SCH ×2 (08:04→21:14)
[2018-11-15] MEDS: Fenofibrate 54 MG TABLET PO SCH (08:04)
[2018-11-15] MEDS: Aspirin Enteric Coated 81 MG Tablet PO SCH (08:05)
[2018-11-15] MEDS: Ascorbic Acid 500 MG TABLET PO SCH ×2 (08:05→17:11)
[2018-11-15] MEDS: Metoprolol XL (24 HR) Succ 50 MG TAB.ER.24H PO SCH ×2 (08:05→21:14)
[2018-11-15] MEDS: amLODIPine 5 MG TABLET PO SCH (08:05)
[2018-11-15] MEDS: Multivit/Ca/Min/Fe/FA 1 TAB TABLET PO SCH (08:06)
[2018-11-15 08:07] LABS: BUN/Creatinine Ratio 39 (6-26); Blood Urea Nitrogen 39 mg/dL (8-23); Carbon Dioxide 30 mEq/L (23-29); Chloride 104 mEq/L (98-107); Glucose 114 mg/dL (70-105); Osmolality,Calculated 296 (280-300); Potassium 4.4 mEq/L (3.5-5.1); Sodium 138 mEq/L (136-145); eGFR For Non-African Americans 53 (> 60)
[2018-11-15] MEDS: Ringers Solution, Lactated 1,000 ML IVC SCH ×4 (08:09→21:21)
[2018-11-15] MEDS: Fluticasone Propionate Nasal 50 MCG/SPRAY BOTTLE NS SCH (08:10)
--- NOTE | 2018-11-15 12:49 | Event Note ---
Date of Encounter: 11/15/18 Time of Encounter: 12:10 PCR - POD#2 s/p Right hip removal of hardware and right hip hemiarthroplasty 11/13/18 Patient seen at bedside, without complaints. A&O x 3 Afebrile, vital signs stable. Dressings noted to have small amount bloody drainage to posterior end of incision will continue to monitor, stable with no increase from yesterday. no calf tenderness to palpation, good dorsiflexion of foot, sensation intact distally. knee immobilizer was slightly bent and metal bar digging into calf, this was adjusted during visit and patient states felt much better. Labs reviewed. H/H - 8.7/27.0 asymptomatic kidney function stable, CKD Tmax overnight 99.8, afebrile currently Preliminary intraop wound cx showed positive for staph aureus presumptive MRSA. final sensitivity report pending. Vancomycin originally ordered but patient had a reaction with arm red/spotchy and swollen with increase pain at IV site and itchiness. Denies any respiratory symptoms and redness/swelling have improved. Vancomycin was d/c and given benadryl. ID has been consulted and appreciate their recommendations and guidance on abx choice/management. Pain control: adequate Participating in PT. (knee immobilizer in place-NO KNEE FLEXION), WBAT All questions and concerns addressed. Educated on use of incentive spirometer. Encouraged ambulation and proper hydration. Patient educated on post-operative restrictions and post-operative care. Assessment and plan: Continue with postoperative care Discharge plan: ECF planned for 11/16/18 pending medical clearance
--- NOTE | 2018-11-15 12:52 | Infectious Disease Consult ---
Infectious Disease-Consult - Encounter Date/Time Date of Encounter: 11/15/18 Time of Encounter: 12:49 - Data of Consult Patient: new to practice Reason for consult: Right hip infection Consult date: 11/15/18 Requesting Physician: Westley Flynn MD Primary Care Provider: Ed Ramirez MD - [facility] HPI: Mrs. Aguilar is a 83-year-old female with a past medical history of uterine cancer, hypertension, GERD, stage II chronic kidney disease, CAD, obstructive sleep apnea, and right hip IM nailing in November 2014 secondary to fracture status post fall. The patient was admitted to the hospital for for an elective right hip removal of hardware and right hip hemiarthroplasty. We are consulted for for further workup and treatment recommendations for right hip infection. Briefly, the patient is a 83-year-old female with a past medical history as stated above. The patient sustained a fall last November requiring a right hip open reduction intramedullary nail fixation by Dr. Flynn. Over the past 2 months, s he has had increased pain and a hip x-ray showed protrusion of the helical blade through the femoral head. She was recommended to undergo a revision surgery in 11/13/18 chest underwent a right hip removal of hardware and right hip hemiarthroplasty. Intraoperative cultures are positive for staph aureus, presumptively MRSA. We have been asked to evaluate and make further recommendations. Since admission, the patient has remained afebrile and hemodynamically stable. She does have a postop leukocytosis which is improved. Her renal function has remained normal. She has been afebrile. She was started on IV vancomycin today, and developed some redness and itching of the extremity and the infusion was stopped. We have been asked to evaluate and make further recommendations. During my exam today, the patient states that overall she has felt well prior to surgery. Besides her hip pain, she really had no complaints. She denies any fevers or chills or rigors. Denies chest pain, shortness of breath, or cough. Denies nausea, vomiting, or constipation. Reports chronic diarrhea that has been at baseline. She denies any abdominal pain or urinary complaints. Denies any redness, drainage, or swelling in the hip. States her surgical site was well-healed. Denies oral thrush or skin lesions. Currently, the patient complains of itching to her right upper extremity at the site of her previous IV that started after they began to give her vancomycin. The patient lives at home alone. She is retired. She denies any tobacco, alcohol, or illicit drug use. She denies any chronic infectious diseases. Denies any recent travel. Denies any pet or animal exposures. - ROS Review of Systems: All systems reviewed and no additional remarkable complaints except as stated. - Results CBC & Chem 7: 11/16/18 03:29 11/15/18 07:22 - Exam Vitals: Temp Pulse Resp BP Pulse Ox 98.5 F 68 18 126/66 90 11/15/18 11:30 11/15/18 11:30 11/15/18 11:30 11/15/18 11:30 11/15/18 06:34 Exam: Head: Atraumatic, normal inspection, normocephalic. Eye: EOMI, PERRLA, no scleral icterus noted. ENT: Mucous membranes moist. No odontogenic infection noted. Neck: Normal inspection, no meningismus. Respiratory: Clear to auscultation. No rales, respiratory distress, rhonchi, or wheezes noted. Cardiovascular: Regular rate and rhythm, S1 and S2 audible. No murmurs, rubs, or gallops. GI: Soft, nondistended, normal bowel sounds. Extremities: No joint swelling or tenderness noted. Right hip surgical site with honeycomb dressing with small amount of serosanguinous drainage noted. No erythema. ROM not assess per ortho guidelines. Neurological: Alert, oriented 3, no focal deficits. Psychiatric: normal affect, normal mood. Skin: Dry, intact, warm. Normal color. No rashes. RX: Aspirin [Lo-Dose Aspirin EC] 81 mg PO DAILY 12/15/17 [History] RX: Ergocalciferol (VITAMIN D2) [Vitamin D2] 50,000 unit PO FR 12/15/17 [History] RX: Escitalopram [Lexapro] 10 mg PO HS 12/15/17 [History] RX: Fenofibrate Nanocrystallized [Triglide] 160 mg PO DAILY 12/15/17 [History] RX: Metoprolol Succinate [Toprol Xl] 50 mg PO BID 12/15/17 [History] Esomeprazole Magnesium [Nexium 24Hr] 40 mg PO DAILY 11/13/18 [History] Fluticasone Propionate Nasal [Flonase] 1 spr NS DAILY 11/13/18 [History] Guaifenesin [Mucinex] 600 mg PO Q12H PRN 11/13/18 [History] HYDROcodone/Acet 5/325 mg [[place] 5-325 mg] 1 tab PO Q6H PRN 5 Days #20 tab 11/13/18 [Rx] Loperamide HCl [Imodium A-D] 2 mg PO BID PRN 11/13/18 [History] RX: Amlodipine Besylate 10 mg PO DAILY 11/13/18 [History] RX: Aspirin Enteric Coated [Aspirin EC] 325 mg PO BID 10 Days #20 tablet. 11/13/18 [Rx] RX: Docusate Sodium [Colace] 100 mg PO BID 5 Days #10 capsule 11/13/18 [Rx] Valsartan 160 mg PO BID 11/13/18 [History] Allergy/AdvReac Type Severity Reaction Status Date / Time Amoxicillin Allergy Rash Verified 11/13/18 15:10 cefdinir [From Omnicef] Allergy Rash Verified 11/13/18 15:10 oxycodone [From Percocet] Allergy Hallucinati Verified 11/13/18 15:10 ng Ovdpftx-Fca-Lob Reductase Allergy See Verified 11/13/18 15:10 Inhibitor Comments [Statins] vancomycin Allergy Hives Verified 11/16/18 00:03 - Assessment and Plan (1) Infection of right prosthetic hip joint Current Visit: Yes Status: Acute Location: Right hip. Causative organism: MRSA. Etiology: Unclear. Late-onset by definition as the patient's last surgery was almost a year ago. No cellulitis or fluid collection noted preop. Noted to have leukocytosis postop, but likely reactive to recent surgical procedure as preop labs revealed a normal white blood cell count. No other sepsis criteria noted. Status post right hip removal of hardware and right hip hemiarthroplasty 11/13/[address] Flynn. Operative note reviewed. No purulence noted in drop. Cultures as stated above. Started on IV vancomycin, but had some sort of reaction and antibiotics were sto pped. 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 Status post open right hip reduction IM nailing in November 2014. Status post right hip removal of hardware and right hip hemiarthroplasty 11/13/[address] Flynn. SNOMED Code(s): 257781620 (3) HLD (hyperlipidemia) Current Visit: No Status: Chronic Qualifiers: Hyperlipidemia type: unspecified Qualified Code(s): E78.5 - Hyperlipidemia, unspecified SNOMED Code(s): 25228216 (4) CKD (chronic kidney disease) stage 3, GFR 30-59 ml/min Current Visit: Yes Status: Chronic Monitor renal function closely and dose adjust antibiotics. Avoid nephrotoxins as able. SNOMED Code(s): 574183289 (5) ADILENE (obstructive sleep apnea) Current Visit: Yes Status: Chronic SNOMED Code(s): 32734093 (6) CAD (coronary artery disease) Current Visit: Yes Status: Chronic Qualifiers: Coronary Disease-Associated Artery/Lesion type: unspecified vessel or lesion type [place] vs. transplanted heart: [place] heart Associated angina: angina presence unspecified Qualified Code(s): I25.10 - Atherosclerotic heart disease of [place] coronary artery without angina pectoris SNOMED Code(s): 95480556 (7) HTN (hypertension) Current Visit: No Status: Chronic Qualifiers: Hypertension type: essential hypertension Qualified Code(s): I10 - Essential (primary) hypertension SNOMED Code(s): 16187527 (8) Allergy to multiple antibiotics Current Visit: Yes Status: Chronic Amoxicillin and Ceftin ear-hives. Vancomycin-rash. SNOMED Code(s): 323634505821715 - Recommendations Recommendations: Check ESR and CRP. Await intraoperative cultures to finalize. Discontinue vancomycin. Start daptomycin 6 mg/kg IV daily. Check baseline CK level. Duration of treatment depends on the clinical picture, but likely a total of 6 weeks. Monitor renal function for drug toxicity and dose adjust antibiotics. student services vice president to assist with discharge planning. Consults vascular access team prior to discharge for long-term IV access. Past Med Surg Social Fam HX - Past Medical History Medical history: coronary artery disease, hypertension, renal disease, other Additional medical history: uterine cancer; code 500 with sedation x 2, erythroplastosis. ADILENE Psychiatric history: no psych history - Past Surgical History Surgical History: cholecystectomy, hysterectomy, orthopedic, other, other Additional surgical history: brain surgery 2000 [place] , cyber knife - Social History Smoking Status: Never smoker Smokeless Tobacco Status: No Alcohol use: none Drug use: none - Family History Father Living Status: Age at : 54 Cause of : PR Hx Family Cardiac Disorders: Yes (heart attack) Mother Living Status: Age at : 68 Cause of : lung ca Hx Family Cancer: Yes (lung ca) Hx Family Endocrine Disorder: Yes (dm) Consult Discharge Plan - Plan Referrals: Christiane Arthur CNP [Advanced Practice Nurse] - 11/30/18 1:45 pm Ed Ramirez MD [Primary Care Provider] - - Attending Attestation I have personally performed a face to face evaluation on this patient. I have reviewed and agree with the care plan. History and Exam by me shows: This is an addendum to original report dictated by Christiane Arthur CNP. Please r efer to Christiane's note for full detail. Patient is an 83-year-old woman who has had multiple joint replacement including left knee and right hip. Patient's right have apparently is infected with MRSA and we were asked to evaluate the patient and make further recommendations. 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 Causative organism MRSA. 2.Allergic reaction to MRSA 3.Nonunion fracture 4.Hyperlipidemia Recommendations Based on the allergic reaction to the vancomycin, stop vancomycin start daptomycin 6 mg/kg IV daily. Duration of treatment 6 weeks. Patient will need a PICC line placement Check baseline CK level Check weekly CBC, BMP, ESR, CRP and CK level Patient will need a PICC line prior to discharge Follow-up with us in clinic in 2 weeks
[2018-11-15 14:52] LABS: C-Reactive Protein 117 mg/L (Less than 10); Creatine Kinase 101 Units/L (30-223)
[2018-11-15] MEDS: DAPTOMYCIN IVPB SCH (17:00)
[2018-11-15] MEDS: SODIUM CHLORIDE 0.9% IVPB SCH (17:00)
[2018-11-15] MEDS: traMADol 50 MG TABLET PO PRN (23:04)
[2018-11-16] MEDS: Ringers Solution, Lactated 1,000 ML IVC SCH (01:10)
[2018-11-16 04:21] LABS: Basophils % 0.3 %; Eosinophils # 0.4 K/mcL (0.0-0.6); Eosinophils % 3.2 %; Hematocrit 24.6 % (35.3-44.9); Hemoglobin 7.9 g/dL (11.5-15.4); Immature Granulocytes % 0.3 % (0-4); Lymphocytes # 6.9 K/mcL (0.6-4.6); Lymphocytes % 56.3 %; Mean Corpuscular HGB Conc 32.1 g/dL (31.6-35.5); Mean Corpuscular Hemoglobin 27.5 pg (28.0-33.3); Mean Corpuscular Volume 85.7 fL (83.0-100.0); Mean Platelet Volume 9.1 fL (9.4-12.4); Monocytes # 0.8 K/mcL (0.0-1.3); Monocytes % 6.1 %; Neutrophils # 4.1 K/mcL (1.6-8.9); Platelet Count 140 K/mcL (140-400); Red Blood Count 2.87 M/mcL (3.82-4.97); Red Cell Distribution Width 14.6 % (11.5-14.5); Segmented Neutrophils % 33.8 %
[2018-11-16] MEDS: *HR* Enoxaparin 30 MG/0.3 ML SYRINGE SQ SCH (05:38)
--- NOTE | 2018-11-16 07:43 | Orthopedics Progress Note ---
Date of Encounter: 11/16/18 Time of Encounter: 07:42 - Assessment and Plan (1) Acute blood loss anemia Current Visit: Yes Status: Acute Subjective Interval history: Patient was seen this morning doing well without complaints. We reviewed the results from intraoperative cultures which are routinely taken for second surgeries, came back positive staph aureus. Patient is on antibiotics and being evaluated by the infectious disease team. Prior to this surgery there was no indication at the patient had an infection of the right hip. Afebrile vital signs stable. Operative extremity: Neurovascularly intact Dressing clean dry and intact Calves nontender Assessment and plan: Continue with postoperative care Hemoglobin 7.9 transfuse 1 unit before discharge today if cleared by infectious disease Objective Vital signs: Vital Signs Temp Pulse Resp BP Pulse Ox 11/16/18 06:18 98 F 87 18 134/68 96 11/15/18 23:19 97.9 F 84 17 132/61 96 11/15/18 21:49 93 11/15/18 20:54 98.1 F 80 134/69 93 11/15/18 19:05 97.9 F 83 16 147/76 96 11/15/18 16:24 98.2 F 79 12 133/72 11/15/18 13:11 96 11/15/18 11:30 98.5 F 68 18 126/66 Intake and Output 11/15/18 11/15/18 11/16/18 15:59 23:59 07:59 Intake Total 1300 / 1300 100 / 100 Output Total 400 / 400 700 / 700 Balance 900 / 900 -600 / -600 Intake: Oral 1300 / 1300 100 / 100 Output: Urine 400 / 400 700 / 700 Other: Meal Lunch Percent of Meal Consumed 100% # Voids 1 1 Weight 77.9 kg Patient Weight 11/16/18 23:59 Weight 77.9 kg - Labs CBC & BMP: 11/16/18 03:29 11/15/18 07:22 Labs: Abnormal lab results WBC 12.3 K/mcL (4.3-11.1) H 11/16/18 03:29 RBC 2.87 M/mcL (3.82-4.97) L 11/16/18 03:29 Hgb 7.9 g/dL (11.5-15.4) L 11/16/18 03:29 Hct 24.6 % (35.3-44.9) L 11/16/18 03:29 MCH 27.5 pg (28.0-33.3) L 11/16/18 03:29 RDW 14.6 % (11.5-14.5) H 11/16/18 03:29 MPV 9.1 fL (9.4-12.4) L 11/16/18 03:29 Lymphocytes # 6.9 K/mcL (0.6-4.6) H 11/16/18 03:29 Carbon Dioxide 30 mEq/L (23-29) H 11/15/18 07:22 BUN 39 mg/dL (8-23) H 11/15/18 07:22 Est GFR (Non-Af Amer) 53 (> 60) L 11/15/18 07:22 BUN/Creatinine Ratio 39 (6-26) H 11/15/18 07:22 Glucose 114 mg/dL (70-105) H 11/15/18 07:22 C-Reactive Protein 117 mg/L (Less than 10) H 11/15/18 07:22 - VTE Documentation of Mechanical Device: Venous foot pump, device Consult Discharge Plan - Plan Referrals: Ed Ramirez MD [Primary Care Provider] -
[2018-11-16] MEDS: Metoprolol XL (24 HR) Succ 50 MG TAB.ER.24H PO SCH (08:54)
[2018-11-16] MEDS: Aspirin Enteric Coated 81 MG Tablet PO SCH (08:54)
[2018-11-16] MEDS: Ascorbic Acid 500 MG TABLET PO SCH (08:54)
[2018-11-16] MEDS: Fenofibrate 54 MG TABLET PO SCH (08:54)
[2018-11-16] MEDS: Multivit/Ca/Min/Fe/FA 1 TAB TABLET PO SCH (08:54)
--- NOTE | 2018-11-16 10:50 | Infectious Disease Progress No ---
ID Progress Note Date of Encounter: 11/16/18 Time of Encounter: 10:47 - Subjective Subjective: Patient seen and examined. No acute events noted overnight. Patient states pain in her hip is better, but still pretty significant when she gets up and moves around. Denies fevers, chills, rigors. Denies chest pain, shortness of breath, or cough. Denies nausea, vomiting, or constipation. Reports chronically loose stools that are baseline. Denies abdominal pain or urinary complaints. Denies any oral thrush or any skin lesions. - Objective CBC & Chem 7: 11/16/18 03:29 11/15/18 07:22 - Exam Vitals: Temp Pulse Resp BP Pulse Ox 98.4 F 72 16 110/67 94 11/16/18 08:09 11/16/18 10:25 11/16/18 08:09 11/16/18 08:09 11/16/18 08:09 Exam: Head: Atraumatic, normal inspection, normocephalic. Eye: EOMI, PERRLA, no scleral icterus noted. ENT: Mucous membranes moist. No odontogenic infection noted. Neck: Normal inspection, no meningismus. Respiratory: Clear to auscultation. No rales, respiratory distress, rhonchi, or wheezes noted. Cardiovascular: Regular rate and rhythm, S1 and S2 audible. No murmurs, rubs, or gallops. GI: Soft, nondistended, normal bowel sounds. Extremities: No joint swelling or tenderness noted. Right hip surgical site with honeycomb dressing with small amount of serosanguinous drainage noted. No erythema. ROM not assessed per ortho guidelines. Neurological: Alert, oriented 3, no focal deficits. Psychiatric: normal affect, normal mood. Skin: Dry, intact, warm. Normal color. No rashes. - Assessment and Plan (1) Infection of right prosthetic hip joint Current Visit: Yes Status: Acute Location: Right hip. Causative organism: MRSA. Etiology: Unclear. Late-onset by definition as the patient's last surgery was almost a year ago. No cellulitis or fluid collection noted preop. Noted to have leukocytosis postop, but likely reactive to recent surgical procedure as preop labs revealed a normal white blood cell count. No other se psis criteria noted. Status post right hip removal of hardware and right hip hemiarthroplasty 11/13/[address] Flynn. Operative note reviewed. No purulence noted in drop. Cultures as stated above. Had reaction to Vancomycin. Currently on Daptomycin. 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 Status post open right hip reduction IM nailing in November 2014. Status post right hip removal of hardware and right hip hemiarthroplasty 11/13/[address] Flynn. SNOMED Code(s): 107432792 (3) HLD (hyperlipidemia) Current Visit: No Status: Chronic Qualifiers: Hyperlipidemia type: unspecified Qualified Code(s): E78.5 - Hyperlipidemia, unspecified SNOMED Code(s): 51253691 (4) CKD (chronic kidney disease) stage 3, GFR 30-59 ml/min Current Visit: Yes Status: Chronic Monitor renal function closely and dose adjust antibiotics. Avoid nephrotoxins as able. SNOMED Code(s): 563117256 (5) ADILENE (obstructive sleep apnea) Current Visit: Yes Status: Chronic SNOMED Code(s): 24713951 (6) CAD (coronary artery disease) Current Visit: Yes Status: Chronic Qualifiers: Coronary Disease-Associated Artery/Lesion type: unspecified vessel or lesion type [place] vs. transplanted heart: [place] heart Associated angina: angina presence unspecified Qualified Code(s): I25.10 - Atherosclerotic heart disease of [place] coronary artery without angina pectoris SNOMED Code(s): 21796340 (7) HTN (hypertension) Current Visit: No Status: Chronic Qualifiers: Hypertension type: essential hypertension Qualified Code(s): I10 - Essential (primary) hypertension SNOMED Code(s): 45955326 (8) Allergy to multiple antibiotics Current Visit: Yes Status: Chronic Amoxicillin and Cefdinir-hives. Vancomycin-rash. SNOMED Code(s): 744912113982065 - Recommendations Recommendations: Check baseline LFTs. Continue daptomycin 6 mg/kg IV daily (baseline CK 101). Start rifampin 300mg PO TID. (CrCl ~30). Duration of treatment depends on the clinical picture, but likely a total of 6 weeks. Monitor renal function for drug toxicity and dose adjust antibiotics. director of managed services to assist with discharge planning. Consults vascular access team prior to discharge for long-term IV access. Will need weekly CBC, BUN/Cr, ESR, CRP, and CK level. Will need weekly IV care per protocol. Follow up with ID 11/30/18 at 1345. - VTE Documentation of Mechanical Device: Venous foot pump, device Consult Discharge Plan - Plan Referrals: Ed Ramirez MD [Primary Care Provider] - Christiane Arthur CNP [Advanced Practice Nurse] - 11/30/18 1:45 pm - Attending Attestation I have personally performed a face to face evaluation on this patient. I have reviewed and agree with the care plan. 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 Causative organism MRSA. 2.Allergic reaction to MRSA 3.Nonunion fracture 4.Hyperlipidemia Recommendations Based on the allergic reaction to the vancomycin, stop vancomycin start daptomycin 6 mg/kg IV daily. Duration of treatment 6 weeks. Patient will need a PICC line placement Check baseline CK level Check weekly CBC, BMP, ESR, CRP and CK level Patient will need a PICC line prior to discharge Follow-up with us in clinic in 2 weeks
[2018-11-16] MEDS ORDERED: 0.9 % Sodium Chloride 500 ML ONE (11:31)
[2018-11-16 11:37] LABS: Albumin 3.5 g/dL (3.5-5.7); Albumin/Globulin Ratio 1.6 (1.1-2.2); Bilirubin,Direct 0.2 mg/dL (0.0-0.2); Bilirubin,Indirect 0.4 mg/dL (0.0-1.2); Bilirubin,Total 0.6 mg/dL (0.3-1.0); Globulin 2.2 g/dL (2.4-3.5); Total Protein 5.7 g/dL (6.4-8.9)
[2018-11-16 14:38] VITALS: BP 131/60
[2018-11-16] MEDS: SODIUM CHLORIDE 0.9% IVPB SCH (15:23)
[2018-11-16] MEDS: DAPTOMYCIN IVPB SCH (15:23)
[2018-11-16] MEDS: Fluticasone Propionate Nasal 50 MCG/SPRAY BOTTLE NS SCH (15:25)
[2018-11-16 16:46] LABS: Hematocrit 28.9 % (35.3-44.9); Hemoglobin 9.4 g/dL (11.5-15.4)
[2018-11-16] MEDS: amLODIPine 5 MG TABLET PO SCH (17:48)
[2018-11-16] MEDS: Valsartan 160 MG TABLET PO SCH (17:48)
== END 2018-11-16 17:30 | disposition other institution (70) | DRG 467 ==
LOC: SAMDAY 14:35 → 3NENU 21:56
PROVIDERS: ADMIT Orthopaedic Surgery; ATTEND Orthopaedic Surgery